=== PATIENT | male | born 1980 | race Caucasian/White ===

== ENCOUNTER 2017-01-10 11:47 | Inpatient (IN) | payer SELFPAY ==
[2017-01-10 12:41] LABS: Hematocrit 48 % (42-52); Hemoglobin 16.2 g/dl (14.0-18.0); Mean Corpuscular HGB Conc 34 g/dl (31-36); Mean Corpuscular Hemoglobin 31 pg (27-31); Mean Corpuscular Volume 91 fL (80-94); Mean Platelet Volume 7 um3 (7.4-10.4); Red Blood Count 5.24 10^6/ul (4.0-5.4); Red Cell Distribution Width 13 % (10.5-15); White Blood Count 9.9 10^3/ul (3.5-10.8)
[2017-01-10 12:45] LABS: Urine Bacteria Absent (Absent); Urine Bilirubin Negative (Negative); Urine Glucose Negative (Negative); Urine Nitrite Negative (Negative)
[2017-01-10 12:58] LABS: ALT 29 U/L (7-52); AST 24 U/L (13-39); Albumin 4.7 g/dL (3.2-5.2); Alkaline Phosphatase 52 U/L (34-104); Anion Gap 7 mmol/L (2-11); BUN/Creatinine Ratio 15.7 (8-20); Blood Urea Nitrogen 14 mg/dL (6-24); CO2 Carbon Dioxide 27 mmol/L (22-32); Calcium 9.4 mg/dL (8.6-10.3); Chloride 101 mmol/L (101-111); EGFR Non-African American 95.7 (>60); Glucose 88 mg/dL (70-100); Potassium 3.8 mmol/L (3.5-5.0); Sodium 135 mmol/L (133-145); Total Protein 7.7 g/dL (6.4-8.9)
[2017-01-10 13:00] LABS: Benzodiazepine Urine Screen None Detected (None Detect)
[2017-01-10 13:22] LABS: Acetaminophen < 15 mcg/mL; Alcohol < 10 mg/dL (<10); Salicylate < 2.50 mg/dL (<30)
[2017-01-10 13:33] LABS: TSH (Thyroid Stimulating Horm) 1.23 mcIU/mL (0.34-5.60)
[2017-01-10] MEDS ORDERED: Al Hydrox/Mg Hydrox/Simet LIQ* 30 ML UDC PO PRN (19:45)
--- NOTE | 2017-01-10 19:48 | ED ---
Elizabeth Rodriguez Matthew, scribed for Jose Rafael Orellana on 01/10/17 at 1924 . Progress - Progress Note Progress Note: The patient was a sign out from Dr. Ku. The patient had a mental health evaluation and will be admitted to [facility]. She is in stable condition. - Consult/PCP Time Called: 15:35 Course/Dx - Diagnoses Provider Diagnoses: Mood disorder The documentation as recorded by the kenyibeElizabeth Matthew accurately reflects the service I personally performed and the decisions made by Reyna rudd Emmanuel.
[2017-01-10] MEDS: Acetaminophen TAB* 325 MG PO PRN (20:20)
[2017-01-10] MEDS: busPIRone TAB* 10 MG PO SCH (22:00)
--- NOTE | 2017-01-11 07:50 | ED ---
Pablito Rodriguez Rebecca, scribed for Saw Ku MD on 01/10/17 at 1211 . Psychiatric Complaint - HPI Summary HPI Summary: Pt is a 36 y/o M who presents to ED c/o increased impulsive actions. States that for the past week he has been acting impulsively and is concerned that he will hurt himself or others. Sx aggravated by medication non-compliance, alleviated by nothing. Pt reports that he believed his OCD and Bipolar were under control, so he ceased his Abilify and Lucida. Denies any pain. PMHx OCD, Bipolar disorder, Depression. Does see a psychiatrist. - History Of Current Complaint Chief Complaint: EDMentalHealth Time Seen by Provider: 01/10/17 11:57 Hx Obtained From: Patient Onset/Duration: Gradual Onset, Lasting Weeks - 1 week, Still Present Timing: Constant Severity Initially: Moderate Severity Currently: Moderate Character: Depressed - "impulsive" Aggravating Factor(s): Medication Non-compliance Alleviating Factor(s): Nothing Associated Signs And Symptoms: Positive: Negative Related History: Positive For: Prior Psychiatric Issues - PCD, Bipolar, Depression - Allergies/Home Medications Allergies/Adverse Reactions: Allergies Allergy/AdvReac Type Severity Reaction Status Date / Time No Known Allergies Allergy Verified 01/10/17 11:56 Home Medications: Home Medications Lisinopril [Zestril 10 MG-] 10 mg PO DAILY 01/10/17 [History Confirmed 01/10/17] Prozac 120 mg PO DAILY 01/10/17 [History Confirmed 01/10/17] busPIRone TAB* [Buspar TAB *] 15 mg PO BID 01/10/17 [History Confirmed 01/10/17] clonazePAM TAB(*) [Klonopin TAB(*)] 0.5 mg BID 01/10/17 [History Confirmed 01/10] PMH/Surg Hx/FS Hx/Imm Hx Cardiovascular History: Reports: Hx Hypertension Psychiatric History: Reports: Hx Depression, Hx Bipolar Disorder, Other Psychiatric Issues/Disorders - Hx OCD Denies: Hx Eating Disorder, Hx of Violent Episodes Against Others Infectious Disease History: No Infectious Disease History: Denies: Traveled Outside the [place] in Last 30 Days - Family History Known Family History: Positive: Cardiac Disease, Other - OCD - Social History Alcohol Use: Rare Substance Use Type: Reports: None Smoking Status (MU): Former Smoker Review of Systems Negative: Arthralgia, Myalgia Positive: Other - "impulsive actions" All Other Systems Reviewed And Are Negative: Yes Physical Exam Triage Information Reviewed: Yes Vital Signs On Initial Exam: Initial Vitals Temp Pulse Resp BP Pulse Ox 99.1 F 84 16 146/89 98 01/10/17 11:56 01/10/17 11:56 01/10/17 11:56 01/10/17 11:56 01/10/17 11:56 Vital Signs Reviewed: Yes Appearance: Positive: Well-Appearing, No Pain Distress Skin: Positive: Warm, Skin Color Reflects Adequate Perfusion, Dry Head/Face: Positive: Normal Head/Face Inspection Eyes: Positive: EOMI, KAYLI ENT: Positive: Normal ENT inspection Neck: Positive: Supple, Nontender Respiratory/Lung Sounds: Positive: Clear to Auscultation, Breath Sounds Present Cardiovascular: Positive: RRR, Pulses are Symmetrical in both Upper and Lower Extremities Musculoskeletal: Positive: Normal, Strength/ROM Intact Neurological: Positive: Normal, Sensory/Motor Intact, Alert, Oriented to Person Place, Time Psychiatric: Positive: Normal, Affect/Mood Appropriate Diagnostics - Vital Signs Vital Signs Temp Pulse Resp BP Pulse Ox 01/10/17 11:56 99.1 F 84 16 146/89 98 - Laboratory Lab Results: Lab Results 01/10/17 01/10/17 01/10/17 Range/Units 12:29 12:29 12:29 WBC 9.9 (3.5-10.8) 10^3/ul RBC 5.24 (4.0-5.4) 10^6/ul Hgb 16.2 (14.0-18.0) g/dl Hct 48 (42-52) % MCV 91 (80-94) fL MCH 31 (27-31) pg MCHC 34 (31-36) g/dl RDW 13 (10.5-15) % Plt Count 308 (150-450) 10^3/ul MPV 7 L (7.4-10.4) um3 Neut % (Auto) 71.4 (38-83) % Lymph % (Auto) 20.7 L (25-47) % [place] % (Auto) 5.9 (1-9) % Eos % (Auto) 1.2 (0-6) % Baso % (Auto) 0.8 (0-2) % Absolute Neuts (auto) 7.1 (1.5-7.7) 10^3/ul Absolute Lymphs (auto) 2.0 (1.0-4.8) 10^3/ul Absolute Monos (auto) 0.6 (0-0.8) 10^3/ul Absolute Eos (auto) 0.1 (0-0.6) 10^3/ul Absolute Basos (auto) 0.1 (0-0.2) 10^3/ul Absolute Nucleated RBC 0.01 10^3/ul Nucleated RBC % 0.1 Sodium 135 (133-145) mmol/L Potassium 3.8 (3.5-5.0) mmol/L Chloride 101 (101-111) mmol/L Carbon Dioxide 27 (22-32) mmol/L Anion Gap 7 (2-11) mmol/L BUN 14 (6-24) mg/dL Creatinine 0.89 (0.67-1.17) mg/dL Est GFR ( Amer) 123.0 (>60) Est GFR (Non-Af Amer) 95.7 (>60) BUN/Creatinine Ratio 15.7 (8-20) Glucose 88 (70-100) mg/dL Calcium 9.4 (8.6-10.3) mg/dL Total Bilirubin 2.30 H (0.2-1.0) mg/dL AST 24 (13-39) U/L ALT 29 (7-52) U/L Alkaline Phosphatase 52 (34-104) U/L Total Protein 7.7 (6.4-8.9) g/dL Albumin 4.7 (3.2-5.2) g/dL Globulin 3.0 (2-4) g/dL Albumin/Globulin Ratio 1.6 (1-3) TSH 1.23 (0.34-5.60) mcIU/mL Urine Color Yellow Urine Appearance Cloudy Urine pH 7.0 (5-9) Ur Specific [place] 1.012 (1.010-1.030) Urine Protein Negative (Negative) Urine Ketones Negative (Negative) Urine Blood Negative (Negative) Urine Nitrate Negative (Negative) Urine Bilirubin Negative (Negative) Urine Urobilinogen Negative (Negative) Ur Leukocyte Esterase Trace H (Negative) Urine WBC (Auto) Absent (Absent) Urine RBC (Auto) Absent (Absent) Ur Squamous Epith Cells Present H (Absent) Urine Bacteria Absent (Absent) Urine Glucose Negative (Negative) Salicylates < 2.50 (<30) mg/dL Urine Opiates Screen (None Detect) Acetaminophen < 15 mcg/mL Ur Barbiturates Screen (None Detect) Ur Phencyclidine Scrn (None Detect) Ur Amphetamines Screen (None Detect) U Benzodiazepines Scrn (None Detect) Urine Cocaine Screen (None Detect) U Cannabinoids Screen (None Detect) Serum Alcohol < 10 (<10) mg/dL 01/10/17 Range/Units 12:29 WBC (3.5-10.8) 10^3/ul RBC (4.0-5.4) 10^6/ul Hgb (14.0-18.0) g/dl Hct (42-52) % MCV (80-94) fL MCH (27-31) pg MCHC (31-36) g/dl RDW (10.5-15) % Plt Count (150-450) 10^3/ul MPV (7.4-10.4) um3 Neut % (Auto) (38-83) % Lymph % (Auto) (25-47) % [place] % (Auto) (1-9) % Eos % (Auto) (0-6) % Baso % (Auto) (0-2) % Absolute Neuts (auto) (1.5-7.7) 10^3/ul Absolute Lymphs (auto) (1.0-4.8) 10^3/ul Absolute Monos (auto) (0-0.8) 10^3/ul Absolute Eos (auto) (0-0.6) 10^3/ul Absolute Basos (auto) (0-0.2) 10^3/ul Absolute Nucleated RBC 10^3/ul Nucleated RBC % Sodium (133-145) mmol/L Potassium (3.5-5.0) mmol/L Chloride (101-111) mmol/L Carbon Dioxide (22-32) mmol/L Anion Gap (2-11) mmol/L BUN (6-24) mg/dL Creatinine (0.67-1.17) mg/dL Est GFR ( Amer) (>60) Est GFR (Non-Af Amer) (>60) BUN/Creatinine Ratio (8-20) Glucose (70-100) mg/dL Calcium (8.6-10.3) mg/dL Total Bilirubin (0.2-1.0) mg/dL AST (13-39) U/L ALT (7-52) U/L Alkaline Phosphatase (34-104) U/L Total Protein (6.4-8.9) g/dL Albumin (3.2-5.2) g/dL Globulin (2-4) g/dL Albumin/Globulin Ratio (1-3) TSH (0.34-5.60) mcIU/mL Urine Color Urine Appearance Urine pH (5-9) Ur Specific [place] (1.010-1.030) Urine Protein (Negative) Urine Ketones (Negative) Urine Blood (Negative) Urine Nitrate (Negative) Urine Bilirubin (Negative) Urine Urobilinogen (Negative) Ur Leukocyte Esterase (Negative) Urine WBC (Auto) (Absent) Urine RBC (Auto) (Absent) Ur Squamous Epith Cells (Absent) Urine Bacteria (Absent) Urine Glucose (Negative) Salicylates (<30) mg/dL Urine Opiates Screen None detected (None Detect) Acetaminophen mcg/mL Ur Barbiturates Screen None detected (None Detect) Ur Phencyclidine Scrn None detected (None Detect) Ur Amphetamines Screen None detected (None Detect) U Benzodiazepines Scrn None detected (None Detect) Urine Cocaine Screen None detected (None Detect) U Cannabinoids Screen None detected (None Detect) Serum Alcohol (<10) mg/dL Result Diagrams: 01/10/17 12:29 01/10/17 12:29 Lab Statement: Any lab studies that have been ordered have been reviewed, and results considered in the medical decision making process. Course/Dx - Course Course Of Treatment: Pt is a 36 y/o M who presents to ED c/o increased impulsive actions. States that for the past week he has been acting impulsively and is concerned that he will hurt himself or others. Sx aggravated by medication non-compliance, alleviated by nothing. Pt reports that he believed his OCD and Bipolar were under control, so he ceased his Abilify and Lucida. Denies any pain. PMHx OCD, Bipolar disorder, Depression. Does see a psychiatrist. All blood work WNL. He is medically cleared. He is awaiting for a MHE. Patient is hemodynamically stable and A+O x 3. He still awaiting for MHE. He will be signed out to Dr. Orellana next ER attending Assessment/Plan: Pt is medically cleared for MHE at 1359. - Differential Dx/Clinical Impression Differential Diagnosis/HQI/PQRI: Positive: Depression, Suicidal Ideation, Suicidal Gesture Provider Diagnosis: Mood disorder Discharge - Discharge Plan Condition: Stable Disposition: ADMITTED TO [facility] The documentation as recorded by the Pablito talbot Rebecca accurately reflects the service I personally performed and the decisions made by Kings rudd Walter, MD.
[2017-01-11] MEDS: FLUoxetine CAP* 20 MG PO SCH (10:11)
[2017-01-11] MEDS: busPIRone TAB* 10 MG PO SCH ×2 (10:11→20:04)
[2017-01-11] MEDS: Vitamin THERAPEUTIC TAB PO SCH (10:11)
[2017-01-11] MEDS: Lisinopril TAB* 10 MG PO SCH (13:31)
--- NOTE | 2017-01-11 18:33 | HP ---
HISTORY AND PHYSICAL: DATE OF ADMISSION: 01/10/17 IDENTIFYING DATA: Willie is a 36-year-old , currently unemployed male and this is his second psychiatric hospitalization on [facility]. He was last hospitalized here on 08/07/15. CHIEF COMPLAINT: "I am no good for my family, hence should kill myself." HISTORY OF PRESENT ILLNESS: Willie with a lifelong history of mental illness and minimum treatment for all along was brought into the emergency department by his father after he went to stay in a hotel room with an intention to commit suicide so that he does not have to bother his family or be a burden on them any way. This is probably his second lifetime suicidal intent with definitive plan. This time, he wanted to overdose on his pills to commit suicide. Please review Dr. Redmond' initial H and P done on 08/07/15 for details. During today' s evaluation, Willie reports that he has been tormented with intrusive thoughts of hurting people, especially people near and dear to him. Most disturbing thought that bothers him the most is the intrusive thoughts of sexually hurting his 16-year-old daughter and he has had this thought since she was a couple of years old. He also has this intrusive thought of mutilating others whoever he comes in contact with and to avoid that, he stays to self, isolates himself in a room or somewhere where he will not have any contact with anybody. He also reports of having severe paranoia towards others as if they are always observing him and trying to kill him and to avoid being killed, he wants to kill them preemptively. On a daily basis, he struggles through with those intrusive thoughts. Ever since he was 14-year-old, he started hearing voices, especially a female voice telling him to do things. He heard the voices and followed the command by the female voice he heard at age 14 by getting out of the school as the voicing was telling him "get out of the school." He kept hearing those voices ever since and since his grandfather , he has been hearing his grandfather's voice in a more calming and soothing voice telling him not to worry about anything and be happy, that kind of stuff, but he keeps hearing the voices. He also complains of seeing things at times which are not there; however, those visual hallucinations are vague, but auditory hallucinations are persistent for all these years except for those times that he was started on Seroquel by Dr. Redmond when he was here in 2014. After that, he was taken off that medicine, tried on different other medications which did not help much. Today, he continues to hear the voices and is disturbed by that. His life story has been a very interesting and significant one, which needs to be looked at by the treatment team. Part of it is mentioned in Dr. Redmond' evaluation. Especially his previous relationship with his and current relationship which is kind of randa because of his suspicion that he has had about his and her infidelity which in my opinion probably is rooted more into his paranoia and delusions. In the recent past, he has had some germaphobia leading up to cleanliness. That has not affected his function and lifestyle as much, but it is still distressing to him. Today, he denies any other problems including financial problem as his works as a nurse, although he is [id number] dad. To emphasize one point that he continues to be suicidal and homicidal towards others. PAST PSYCHIATRIC HISTORY: As mentioned earlier, he had 1 hospitalization in 2015. Had some followup with [facility] and was tried on multiple different medications including Prozac, Klonopin, BuSpar, Seroquel, etc. According to Willie, Seroquel helped him the most. PAST MEDICAL HISTORY: Remarkable for chronic hypertension which is pretty much in control with lisinopril. Otherwise, he is a healthy young man who does not appear to be in any distress today. ALLERGIES: No known drug allergies. PRIMARY CARE PROVIDER: Dr. Richards. FAMILY HISTORY: Significant for his paternal grandfather who suffered from OCD , also did his aunt. There is history of depression on his mother's side. One of his paternal uncles also had panic disorder. Daughter also has a history of depression. SOCIAL AND PERSONAL HISTORY: He was born and raised in [place]. He has 2 brothers, 1 younger and older. He has a supportive family and a supportive . He has 4 children, all of whom are healthy and supportive of him. He denies any legal problems. Initially, quit school at age 14 because of command auditory hallucinations. Then worked for a while, went back to school, got his GED done and later went to do some college courses. He was employed most of his life except for occasions that he went back to school or wanted to transfer from here to [place]. Had good paying jobs. 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 PHYSICAL EXAMINATION GENERAL: Willie is a healthy-looking male who is neatly dressed and groomed. VITAL SIGNS: Taken this morning show a blood pressure of 180/69, pulse 72, respirations 16, temperature 98.9 degrees Fahrenheit, O2 sat 100%. HEENT: Head: Atraumatic, normocephalic. Eyes: PERRLA. EOMI. No icterus. Mouth: Oral mucosa moist. Good dentures. No indication of any inflammation. NECK: Supple. Midline trachea. No lymphadenopathy. Carotid auscultation is within normal limits without any murmurs. LUNGS: Air entry on both sides good. No wheezes or crackles. HEART: Regular rate and rhythm. S1 and S2 only. No murmurs. ABDOMEN: Soft, nontender. No organomegaly palpated. Bowel sounds audible in all quadrants. EXTREMITIES: Pulses positive in all 4 extremities. Range of movements within normal limits. NEUROLOGIC: Cranial nerves II through XII grossly intact. No deficits. He is alert and oriented to time, place, and person. Overall, he is a healthy- appearing young male. LABORATORY DATA: Included CBC with differential, serum chemistry, urinalysis, urine drug screen, and toxicology screen. WBC is 9.9, hemoglobin 16.2, hematocrit 48, platelets 308. Rest of the parameters are within normal limits. Chemistry shows a sodium of 135, potassium 3.8, chloride 101, carbon dioxide 27, creatinine 0.89, BUN 14, GFR 95.7. Total bilirubin is 2.30 which is higher than normal. Liver function tests within normal limits. Urinalysis unremarkable. Urine drug screen negative for all street drugs. Serum salicylate level is less than 2.5. Acetaminophen less than 25. Serum alcohol less than 10. MENTAL STATUS EXAMINATION: Examined in his room while he was sitting in his bed and later laid down, staring away from the examiner, mostly covered his eyes with his arm. He is alert and oriented to time, place, and person. Speech is slow and low in volume; however, is goal directed. Describes his mood as down and anxious. Observed affect appears to be constricted. Thought process appears to be logical and goal directed. Thought Content: Has some paranoid delusion and some obsessions about hurting others, both physically and sexually. Reporting of command auditory hallucinations of both man and woman voices which is intrusive and he tries to get rid of them by hitting his head on the wall sometimes or punching himself. Continues to have both suicidal and homicidal thoughts. Intelligence appears to be average as evidenced by his educational background, vocabulary, and fund of knowledge. Memory functions are intact in all spheres. Insight and judgment adequate. SUMMARY: This 36-year-old male with history of mental illness, especially psychosis since age 14 was admitted twice on behavioral health unit here and appears to have done fairly well on Seroquel in the past. In the recent past, his symptoms reoccurred and he is currently both suicidal and homicidal. DIAGNOSES: Meherrin I: Schizophrenia, paranoid type, continuous. Rule out obsessive- compulsive disorder. Rule out major depressive disorder with psychosis. PHYSICAL HEALTH DIAGNOSIS: Hypertension. TREATMENT RECOMMENDATIONS: Willie will remain hospitalized on behavioral health unit for his safety, further evaluation and assessments and diagnostic clarification. For now, his code status will remain full. Supportive milieu, individual, and group therapy will be initiated. Different treatment options with risks, benefits, and alternatives were discussed with Willie. He is willing to try Seroquel again. Hence, I have prescribed Seroquel 50 mg at bedtime starting tonight. I have also prescribed Depakote 250 mg twice a day, which he agreed to take. Further pharmacological management will be deferred to his assigned psychiatrist on the unit. His antihypertensive will continue as it was on an outpatient basis. [id number]/[facility] #: [id number] [facility]
--- NOTE | 2017-01-11 20:02 | ADMNOTE ---
Identification - Identify Employment Status: Unemployed History - Objective HPI: 36 y/o male known to this unit from his last admission in 2014 almost underthe same circumstances presents to [facility] complaining of suicidal and homicidal thoughts with command auditory hallucinations and paranoid delusions off an on since age 14. Exam Appearance: Healthy Appearing Hygiene: Normal Grooming: Well Kept Psychomotor Activities: Normal Exhibits Abnormal Movement: No Attitude and Relatedness: Appropriate Eye Contact: Poor - Speech Quality: Unpressured Latencies: Long Quantity: Appropriate Patient's Decription of Mood: "Sad" Observed Affect: Constricted Affect Consistent with: Dysphoria Patient's Thought Process: Coherent, Goal Directed Thought Content: Yes Passive Wish, Yes Suicidal Planning Experiencing Hallucinations: Yes Type of Hallucinations: Visual: Yes, Auditory: Yes, Command: Yes Level of Consciousness: Alert Orientation: Yes Intact, Yes Orientated to Time, Yes Orientated to Place, Yes Orientated to Person Impulse Control: Tenuous - two prior suicide attempts Insight and Judgement: Good Impression - Impression Clinical Impression: 36 y/o male with paranoia, command auditory hallucination, suicidal and homicidal ideations and intrussive thoughts of sexually assaulting his 12 y/o daugher was BIB his father for help. Merits Inpatient Hospitalization: Yes - [place] [facility] Mental Illness: Schizophrenia, PT vs SChizoaffective d/o - [place] [facility] Medical Illness: HTN Plan - Treatment Plan Continued Medication Management: Start Medication Medications: Current Medications Acetaminophen (Tylenol Tab*) 650 mg PO Q4H PRN PRN Reason: PAIN or TEMP > 101 F Last Admin: 01/10/17 20:20 Dose: 650 mg Al Hydrox/Mg Hydrox/Simethicone (Maalox Plus*) 30 ml PO Q4H PRN PRN Reason: INDIGESTION Buspirone HCl (Buspar Tab*) 20 mg PO BID [facility] Last Admin: 01/11/17 10:11 Dose: 20 mg Divalproex Sodium (Depakote Dr Tab(*)) 250 mg PO BID [facility] Fluoxetine HCl (Prozac Cap*) 60 mg PO DAILY [facility] Last Admin: 01/11/17 10:11 Dose: 60 mg Lisinopril (Prinivil Tab*) 10 mg PO DAILY [facility] Last Admin: 01/11/17 13:31 Dose: 10 mg Multivitamins (Theragran Tab*) 1 tab PO DAILY [facility] Last Admin: 01/11/17 10:11 Dose: 1 tab Quetiapine Fumarate (Seroquel Tab*) 50 mg PO BEDTIME [facility]IVIA - Discharge Plan Discharge Plan: Outpatient Follow Up Outpatient Program: [facility]
[2017-01-11] MEDS: QUEtiapine TAB* 25 MG PO SCH (20:03)
[2017-01-11] MEDS: Divalproex DR TAB(*) 250 MG PO SCH (20:03)
[2017-01-12] MEDS: FLUoxetine CAP* 20 MG PO SCH (08:41)
[2017-01-12] MEDS: busPIRone TAB* 10 MG PO SCH ×2 (08:41→20:19)
[2017-01-12] MEDS: Divalproex DR TAB(*) 250 MG PO SCH ×2 (08:42→20:19)
[2017-01-12] MEDS: Lisinopril TAB* 10 MG PO SCH (08:42)
[2017-01-12] MEDS: Vitamin THERAPEUTIC TAB PO SCH (08:42)
--- NOTE | 2017-01-12 13:03 | PN ---
Subjective - Subjective Service Type: 89654 Hosp care 15 min low complexity Subjective: Carol reports that he will rescind the 72 hour notice that he gave us earlier today. His believes he needs continued care for the thoughts of harming others that he has been bothered by. At one point in the interview, when I was asking him about family psychiatric history in clarification of what Dr Rider had reported, I had an involuntary belch, he asked if I had chortled, and his asked if he could work with another doctor as she felt that we were not establishing a good rapport. He and his report that he has worked with many different psychotherapists, and none have established a good enough rapport for him to continue to work with them. He asked that we meet more later. He and his report that he should be receiving 120 mg fluoxetine daily. Objective - Appearance Appearance: Healthy Appearing Dysmorphic Features: No Hygiene: Normal Grooming: Well Kept - Behavior Psychomotor Activities: Normal Exhibits Abnormal Movement: No - Attitude and Relatedness Attitude and Relatedness: Cooperative Eye Contact: Fair - Speech Quality: Unpressured Latencies: Normal Quantity: Appropriate - Mood Patient's Decription of Mood: "A little frustrated" - Affect Observed Affect: Depressed Affect Consistent with: Dysphoria - Thought Process Patient's Thought Process: Coherent, Goal Directed Thought Content: No Passive Wish, No Suicidal Planning, No Homicidal Ideation, No Paranoid Ideation - Sensorium Experiencing Hallucinations: No, Sensorium is Clear Type of Hallucinations: Visual: No, Auditory: No, Command: No - Level of Consciousness Level of Consciousness: Alert Orientation: Yes Intact, Yes Orientated to Time, Yes Orientated to Place, Yes Orientated to Person - Impulse Control Impulse Control: Intact - Insight and Judgement Insight and Judgement: Impaired - Group Participation Particating in Group Activities: No Group Participation Comments: in reviewing treatment plan, he and his indicated that they did not feel he benefits from groups - Medication Management Medication Management Adherence: Yes Assessment - Assessment Merits Inpatient Hospitalization: For Immediate Safety, For Stabilization Inpatient DSM-IV Dx: Schizophrenia, paranoid type. OCD Clinical Impression: Carol has been admitted for concerns raised about thoughts to harm family members. He denies today the AH he had reported upon admission. He has put in a 72 hour notice requesting discharge, but has agreed to rescind it. He and his asked to work with another doctor because he misinterpreted my belch as a chortle. His also stated that she felt I was 'overbearing.' Later his reported she felt her could work with me. He remarkably reports no troubles now from the multiple symptoms he reported on admission, including troubling urges to do harm to his child. His indicated that she feels he needs a safe place at this time and should not be discharged. Plan - Plan Treatment Plan: Name: CAROL STONE Birthdate: 1980 [id number] Increase Prozac dose to 120 mg daily. Monitor MS and safety. Gather collateral. Medications: Current Medications Acetaminophen (Tylenol Tab*) 650 mg PO Q4H PRN PRN Reason: PAIN or TEMP > 101 F Last Admin: 01/10/17 20:20 Dose: 650 mg Al Hydrox/Mg Hydrox/Simethicone (Maalox Plus*) 30 ml PO Q4H PRN PRN Reason: INDIGESTION Buspirone HCl (Buspar Tab*) 20 mg PO BID [facility] Last Admin: 01/12/17 08:41 Dose: 20 mg Divalproex Sodium (Depakote Dr Tab(*)) 250 mg PO BID [facility] Last Admin: 01/12/17 08:42 Dose: 250 mg Fluoxetine HCl (Prozac Cap*) 60 mg PO DAILY [facility] Last Admin: 01/12/17 08:41 Dose: 60 mg Lisinopril (Prinivil Tab*) 10 mg PO DAILY [facility] Last Admin: 01/12/17 08:42 Dose: 10 mg Multivitamins (Theragran Tab*) 1 tab PO DAILY [facility] Last Admin: 01/12/17 08:42 Dose: 1 tab Quetiapine Fumarate (Seroquel Tab*) 50 mg PO BEDTIME [facility] Last Admin: 01/11/17 20:03 Dose: 50 mg - Discharge Plan Discharge Plan: Outpatient Follow Up Outpatient Program: [facility]
[2017-01-12] MEDS ORDERED: Nicotine Inhaler* 10 MG AMP INH PRN (13:05)
[2017-01-12] MEDS ORDERED: FLUoxetine CAP* 20 MG PO ONE (13:07)
[2017-01-12] MEDS ORDERED: Mouth Piece, Nicotine* 1 EACH CARTRIDGE INH ONE (13:10)
[2017-01-12] MEDS: QUEtiapine TAB* 25 MG PO SCH (20:19)
[2017-01-13] MEDS: FLUoxetine CAP* 20 MG PO SCH (08:02)
[2017-01-13] MEDS: Lisinopril TAB* 10 MG PO SCH (08:03)
[2017-01-13] MEDS: Divalproex DR TAB(*) 250 MG PO SCH (08:03)
[2017-01-13] MEDS: Vitamin THERAPEUTIC TAB PO SCH (08:03)
[2017-01-13] MEDS: busPIRone TAB* 10 MG PO SCH ×2 (08:03→20:06)
--- NOTE | 2017-01-13 13:55 | PN ---
Subjective - Subjective Service Type: 98307 Hosp care 15 min low complexity Subjective: Carol reports continued high levels of distress from PI, HI, SI. Denies AH/VH but does have intrusive images of him doing harmful things to others, such as grabbing someone by the upper and lower jaw and bringing his knee up into the back of their neck. He has continued concern that he might act on these or other thoughts and images of harming others. He reports that in 2003 he did well taking Zyprexa. He would like to stop the Depakote. He has had disturbing images of everyone on the unit vomiting, so did not leave his room much yesterday. He reported today a history of elaborate redundant suicidal thoughts, e.g. jumping from a bridge with a gun and shooting himself in the head as he falls after taking an overdose. Objective - Appearance Appearance: Healthy Appearing Dysmorphic Features: No Hygiene: Normal Grooming: Well Kept - Behavior Psychomotor Activities: Normal Exhibits Abnormal Movement: No - Attitude and Relatedness Attitude and Relatedness: Withdrawn Eye Contact: Poor - Speech Quality: Unpressured Latencies: Normal Quantity: Appropriate - Mood Patient's Decription of Mood: "My stomach was a little off. I was a little panicky, paranoid." - Affect Observed Affect: Depressed Affect Consistent with: Dysphoria - Thought Process Patient's Thought Process: Coherent, Goal Directed Thought Content: Yes Passive Wish, Yes Suicidal Planning, Yes Homicidal Ideation, Yes Paranoid Ideation - Sensorium Type of Hallucinations: Visual: No - but continued vivid imagery recognized as such, Auditory: No, Command: No - Level of Consciousness Level of Consciousness: Alert Orientation: Yes Intact, Yes Orientated to Time, Yes Orientated to Place, Yes Orientated to Person - Impulse Control Impulse Control: Intact - Insight and Judgement Insight and Judgement: Poor - Group Participation Particating in Group Activities: No - Medication Management Medication Management Adherence: Yes Assessment - Assessment Merits Inpatient Hospitalization: For Immediate Safety, For Stabilization, For Ongoing Evaluation, For Discharge Planning, Pending Safe DC Plan Inpatient DSM-IV Dx: Schizophrenia, paranoid type. OCD Clinical Impression: Carol has been admitted for concerns raised about thoughts to harm family members. He denies today the AH he had reported upon admission. He has put in a 72 hour notice requesting discharge, but has agreed to rescind it. He and his asked to work with another doctor because he misinterpreted my belch as a chortle. His also stated that she felt I was 'overbearing.' Later his reported she felt her could work with me. He remarkably reports no troubles now from the multiple symptoms he reported on admission, including troubling urges to do harm to his child. His indicated that she feels he needs a safe place at this time and should not be discharged. [id number] Carol agrees today to a medication change that may be more effective against target symptoms of obsessional thoughts of harming self and others. Plan - Plan Treatment Plan: Name: CAROL STONE Birthdate: 1980 [id number] Continue Prozac dose at 120 mg daily. D/C Depakote. Replace 50 mg Seroquel with 10 mg Zyprexa. Reviewed potential benefits and side effects. Carol chooses to try Zyprexa for likely benefits against hallucinations, accepting increased risks of dyslipidemia, onset of diabetes, and weight gain. Monitor MS and safety. Gather collateral. Continued Medication Management: Different Medication Medications: Current Medications Acetaminophen (Tylenol Tab*) 650 mg PO Q4H PRN PRN Reason: PAIN or TEMP > 101 F Last Admin: 01/10/17 20:20 Dose: 650 mg Al Hydrox/Mg Hydrox/Simethicone (Maalox Plus*) 30 ml PO Q4H PRN PRN Reason: INDIGESTION Buspirone HCl (Buspar Tab*) 20 mg PO BID [facility] Last Admin: 01/13/17 08:03 Dose: 20 mg Divalproex Sodium (Depakote Dr Tab(*)) 250 mg PO BID [facility] Last Admin: 01/13/17 08:03 Dose: 250 mg Fluoxetine HCl (Prozac Cap*) 120 mg PO DAILY [facility] Last Admin: 01/13/17 08:02 Dose: 120 mg Lisinopril (Prinivil Tab*) 10 mg PO DAILY [facility] Last Admin: 01/13/17 08:03 Dose: 10 mg Multivitamins (Theragran Tab*) 1 tab PO DAILY [facility] Last Admin: 01/13/17 08:03 Dose: 1 tab Nicotine (Nicotine Inhaler*) 10 mg INH Q2H PRN PRN Reason: CRAVING Quetiapine Fumarate (Seroquel Tab*) 50 mg PO BEDTIME [facility] Last Admin: 01/12/17 20:19 Dose: 50 mg - Discharge Plan Discharge Plan: Outpatient Follow Up Outpatient Program: [facility]
[2017-01-13] MEDS: OLANzapine TAB*ODT* 10 MG TAB PO SCH (20:06)
[2017-01-14] MEDS: Vitamin THERAPEUTIC TAB PO SCH (08:12)
[2017-01-14] MEDS: busPIRone TAB* 10 MG PO SCH ×2 (08:13→20:52)
[2017-01-14] MEDS: Lisinopril TAB* 10 MG PO SCH (08:13)
[2017-01-14] MEDS: FLUoxetine CAP* 20 MG PO SCH (08:13)
[2017-01-14] MEDS: Acetaminophen TAB* 325 MG PO PRN (09:31)
--- NOTE | 2017-01-14 15:31 | PN ---
Subjective - Subjective Service Type: 68401 Hosp care 15 min low complexity Subjective: Carol reports today 'calm' mood. He denies any psychotic symptoms or dangerous intent or plan. His only physical complaint is of headache. He reports that he feels his OCD symptoms are under control now. Objective - Appearance Appearance: Healthy Appearing Dysmorphic Features: No Hygiene: Normal Grooming: Well Kept - Behavior Psychomotor Activities: Normal Exhibits Abnormal Movement: No - Attitude and Relatedness Attitude and Relatedness: Cooperative Eye Contact: Good - Speech Quality: Unpressured Latencies: Normal Quantity: Appropriate - Mood Patient's Decription of Mood: "Calm" - Affect Observed Affect: Constricted Affect Consistent with: Euthymia - Thought Process Patient's Thought Process: Coherent, Goal Directed Thought Content: No Passive Wish, No Suicidal Planning, No Homicidal Ideation, No Paranoid Ideation - Sensorium Experiencing Hallucinations: No, Sensorium is Clear Type of Hallucinations: Visual: No, Auditory: No, Command: No - Level of Consciousness Level of Consciousness: Alert Orientation: Yes Intact, Yes Orientated to Time, Yes Orientated to Place, Yes Orientated to Person - Impulse Control Impulse Control: Intact - Insight and Judgement Insight and Judgement: Poor - Group Participation Particating in Group Activities: No - Medication Management Medication Management Adherence: Yes Assessment - Assessment Merits Inpatient Hospitalization: For Immediate Safety, For Stabilization, To Initiate Treatment, For Ongoing Evaluation, For Discharge Planning, Pending Safe DC Plan Inpatient DSM-IV Dx: Schizophrenia, paranoid type. OCD Clinical Impression: Carol has been admitted for concerns raised about thoughts to harm family members. He denies today the AH he had reported upon admission. He has put in a 72 hour notice requesting discharge, but has agreed to rescind it. He and his asked to work with another doctor because he misinterpreted my belch as a chortle. His also stated that she felt I was 'overbearing.' Later his reported she felt her could work with me. He remarkably reports no troubles now from the multiple symptoms he reported on admission, including troubling urges to do harm to his child. His indicated that she feels he needs a safe place at this time and should not be discharged. 314.17 Carol agrees today to a medication change that may be more effective against target symptoms of obsessional thoughts of harming self and others. 3.15.17 Carol now gives an all is well report, denying any active symptoms including report of milder chronic OCD symptoms. On admission, concern had been raised regarding SI and obsessional thoughts of harming others. There is a high likelihood that his current report is masking active symptoms, in congruence with his submission of a 72 hour notice on his third day here. Plan - Plan Treatment Plan: Name: CAROL STONE Birthdate: 1980 [id number] Continue Prozac dose at 120 mg daily and Zyprexa just added at 10 mg nightly. Monitor MS and safety. Gather collateral. Consider psychological testing. Continued Medication Management: Different Medication Medications: Current Medications Acetaminophen (Tylenol Tab*) 650 mg PO Q4H PRN PRN Reason: PAIN or TEMP > 101 F Last Admin: 01/14/17 09:31 Dose: 650 mg Al Hydrox/Mg Hydrox/Simethicone (Maalox Plus*) 30 ml PO Q4H PRN PRN Reason: INDIGESTION Buspirone HCl (Buspar Tab*) 20 mg PO BID [facility] Last Admin: 01/14/17 08:13 Dose: 20 mg Fluoxetine HCl (Prozac Cap*) 120 mg PO DAILY [facility] Last Admin: 01/14/17 08:13 Dose: 120 mg Lisinopril (Prinivil Tab*) 10 mg PO DAILY [facility] Last Admin: 01/14/17 08:13 Dose: 10 mg Multivitamins (Theragran Tab*) 1 tab PO DAILY [facility] Last Admin: 01/14/17 08:12 Dose: 1 tab Nicotine (Nicotine Inhaler*) 10 mg INH Q2H PRN PRN Reason: CRAVING Olanzapine (Zyprexa *Odt*) 10 mg PO BEDTIME [facility] Last Admin: 01/13/17 20:06 Dose: 10 mg - Discharge Plan Discharge Plan: Outpatient Follow Up Outpatient Program: [facility]
[2017-01-14] MEDS: OLANzapine TAB*ODT* 10 MG TAB PO SCH (20:52)
[2017-01-15] MEDS: Vitamin THERAPEUTIC TAB PO SCH (08:26)
[2017-01-15] MEDS: busPIRone TAB* 10 MG PO SCH ×2 (08:26→20:34)
[2017-01-15] MEDS: Lisinopril TAB* 10 MG PO SCH (08:27)
[2017-01-15] MEDS: FLUoxetine CAP* 20 MG PO SCH (08:27)
--- NOTE | 2017-01-15 15:30 | PN ---
Subjective - Subjective Service Type: 02125 Hosp care 15 min low complexity Subjective: Carol reports feeling relatively better - lower distress, anxiety and emotional pain, but still does not feel well. Notes "a little" ongoing suicidal ideation and intrusive thoughts of harming others. Says he is a little more able to engage with others, and go to groups here. He denies side effects with medication - he asked to restart Depakote saying he felt it controlled his tremor nicely. Objective - Appearance Appearance: Well Developed/Nourished Hygiene: Normal Grooming: Well Kept - Behavior Psychomotor Activities: Normal - Attitude and Relatedness Attitude and Relatedness: Cooperative Eye Contact: Good - Speech Quality: Unpressured Latencies: Normal Quantity: Appropriate - Mood Patient's Decription of Mood: "Anxious" - Affect Observed Affect: Tense Affect Consistent with: Dysphoria - Thought Process Patient's Thought Process: Coherent, Impoverished Thought Content: No Passive Wish - notes intrusive suicidal thoughts, No Suicidal Planning, No Homicidal Ideation - notes intrusive violent thoughts, no planning, No Paranoid Ideation - Sensorium Experiencing Hallucinations: No, Sensorium is Clear - Impulse Control Impulse Control: Intact - Insight and Judgement Insight and Judgement: Fair Assessment - Assessment Merits Inpatient Hospitalization: For Immediate Safety, For Stabilization, To Initiate Treatment, For Ongoing Evaluation, Consolidate Improvements Inpatient DSM-IV Dx: OCD. Depressive disorder. Psychotic disorder Clinical Impression: 36 y/o male with history of suicidal behavior, psychiatric hospitalization, OCD , depression, psychosis, outpatient treatment. He was admitted after coming to the ED by car, with complaint of perceptual disturbances, distress, suicidal ideation, depression and anxiety, and an increase in intrusive thoughts of doing harm to loved ones (specifically his daughter). Stabilizing here. Reporting relatively reduced distress, levels and reduction of suicidal and violent thoughts. Is safe on checks, adherent with routines.' Medication management is with Zyprexa and Prozac. He received Depakote for several days, and reasonably asks to restart it. Based on ongoing symptoms, and apparent impairment off baseline requires ongoing hospital care. Plan - Plan Treatment Plan: Name: CAROL STONE Birthdate: 1980 [id number] Continued Medication Management: Different Medication Medications: Current Medications Acetaminophen (Tylenol Tab*) 650 mg PO Q4H PRN PRN Reason: PAIN or TEMP > 101 F Last Admin: 01/14/17 09:31 Dose: 650 mg Al Hydrox/Mg Hydrox/Simethicone (Maalox Plus*) 30 ml PO Q4H PRN PRN Reason: INDIGESTION Buspirone HCl (Buspar Tab*) 20 mg PO BID [facility] Last Admin: 01/15/17 08:26 Dose: 20 mg Fluoxetine HCl (Prozac Cap*) 120 mg PO DAILY [facility] Last Admin: 01/15/17 08:27 Dose: 120 mg Lisinopril (Prinivil Tab*) 10 mg PO DAILY [facility] Last Admin: 01/15/17 08:27 Dose: 10 mg Multivitamins (Theragran Tab*) 1 tab PO DAILY [facility] Last Admin: 01/15/17 08:26 Dose: 1 tab Nicotine (Nicotine Inhaler*) 10 mg INH Q2H PRN PRN Reason: CRAVING Olanzapine (Zyprexa *Odt*) 10 mg PO BEDTIME [facility] Last Admin: 01/14/17 20:52 Dose: 10 mg
[2017-01-15] MEDS: OLANzapine TAB*ODT* 10 MG TAB PO SCH (20:34)
[2017-01-15] MEDS: Divalproex DR TAB(*) 250 MG PO SCH (20:34)
[2017-01-16] MEDS: FLUoxetine CAP* 20 MG PO SCH (08:32)
[2017-01-16] MEDS: Lisinopril TAB* 10 MG PO SCH (08:34)
[2017-01-16] MEDS: Divalproex DR TAB(*) 250 MG PO SCH ×2 (08:34→19:58)
[2017-01-16] MEDS: busPIRone TAB* 10 MG PO SCH ×2 (08:34→19:58)
[2017-01-16] MEDS: Vitamin THERAPEUTIC TAB PO SCH (08:34)
--- NOTE | 2017-01-16 10:53 | PN ---
Subjective - Subjective Service Type: 57209 Hosp care 15 min low complexity Subjective: Carol reports a sense of further progress. Said Depakote seems to make him less shaky, he likes it. He denied side effects. He affirms he feels quite safe in terms of his expected behaviors. Notes very low level of "thoughts" of harm to others which he says is within the spectrum of other usual intrusive ideas (like worry about entering another patient's room) but that are so much milder, not bothersome and not experienced as a major distraction. He is content with his improvements. Objective - Appearance Appearance: Healthy Appearing Hygiene: Normal Grooming: Well Kept - Behavior Psychomotor Activities: Normal - Attitude and Relatedness Attitude and Relatedness: Cooperative Eye Contact: Good - Speech Quality: Unpressured Latencies: Normal Quantity: Appropriate - Mood Patient's Decription of Mood: "Okay" - Affect Observed Affect: Tense Affect Consistent with: Euthymia - Thought Process Patient's Thought Process: Coherent, Goal Directed Thought Content: No Passive Wish, No Suicidal Planning, No Homicidal Ideation, No Paranoid Ideation - Sensorium Experiencing Hallucinations: No, Sensorium is Clear - Level of Consciousness Level of Consciousness: Alert - Impulse Control Impulse Control: Intact - Insight and Judgement Insight and Judgement: Fair Assessment - Assessment Merits Inpatient Hospitalization: To Initiate Treatment, For Ongoing Evaluation , Consolidate Improvements, For Discharge Planning Inpatient DSM-IV Dx: OCD. Depressive disorder. Psychotic disorder Clinical Impression: 36 y/o male with history of suicidal behavior, psychiatric hospitalization, OCD , depression, psychosis, outpatient treatment. He was admitted after coming to the ED by car, with complaint of perceptual disturbances, distress, suicidal ideation, depression and anxiety, and an increase in intrusive thoughts of doing harm to loved ones (specifically his daughter). Stabilizing here. Improving clinically, with better relatedness, more engagement in program, and much milder overt distress. He is reporting reduced symptoms and big reduction in the intensity of suicidal and violent thoughts. Is safe on checks, adherent with routines, appropriate for 30 minute checks, staff pass, and visitation with children at family discretion. Medication management is with Zyprexa, Prozac, and low dose Depakote (routine Lipid panel ordered for Thursday). Based on ongoing symptoms, and relative impairment off baseline, he requires ongoing hospital care. Plan - Plan Treatment Plan: Name: CAROL STONE Birthdate: 1980 [id number] Continued Medication Management: Start Medication Medications: Current Medications Acetaminophen (Tylenol Tab*) 650 mg PO Q4H PRN PRN Reason: PAIN or TEMP > 101 F Last Admin: 01/14/17 09:31 Dose: 650 mg Al Hydrox/Mg Hydrox/Simethicone (Maalox Plus*) 30 ml PO Q4H PRN PRN Reason: INDIGESTION Buspirone HCl (Buspar Tab*) 20 mg PO BID [facility] Last Admin: 01/16/17 08:34 Dose: 20 mg Divalproex Sodium (Depakote Dr Tab(*)) 250 mg PO BID [facility] Last Admin: 01/16/17 08:34 Dose: 250 mg Fluoxetine HCl (Prozac Cap*) 120 mg PO DAILY [facility] Last Admin: 01/16/17 08:32 Dose: 120 mg Lisinopril (Prinivil Tab*) 10 mg PO DAILY [facility] Last Admin: 01/16/17 08:34 Dose: 10 mg Multivitamins (Theragran Tab*) 1 tab PO DAILY [facility] Last Admin: 01/16/17 08:34 Dose: 1 tab Nicotine (Nicotine Inhaler*) 10 mg INH Q2H PRN PRN Reason: CRAVING Olanzapine (Zyprexa *Odt*) 10 mg PO BEDTIME [facility] Last Admin: 01/15/17 20:34 Dose: 10 mg - Discharge Plan Discharge Plan: Outpatient Follow Up
[2017-01-16] MEDS: OLANzapine TAB*ODT* 10 MG TAB PO SCH (19:58)
[2017-01-17] MEDS ORDERED: Temazepam CAP* 15 MG PO PRN (08:52)
[2017-01-17] MEDS: FLUoxetine CAP* 20 MG PO SCH (08:57)
[2017-01-17] MEDS: Lisinopril TAB* 10 MG PO SCH (08:57)
[2017-01-17] MEDS: Vitamin THERAPEUTIC TAB PO SCH (08:57)
[2017-01-17] MEDS: busPIRone TAB* 10 MG PO SCH ×2 (08:57→20:16)
[2017-01-17] MEDS: Divalproex DR TAB(*) 250 MG PO SCH ×2 (08:57→20:16)
[2017-01-17] MEDS: OLANzapine TAB*ODT* 10 MG TAB PO SCH (20:16)
[2017-01-17] MEDS: clonazePAM TAB(*) 0.5 MG PO PRN (20:18)
[2017-01-18] MEDS: clonazePAM TAB(*) 0.5 MG PO PRN ×2 (08:48→19:30)
[2017-01-18] MEDS: Divalproex DR TAB(*) 250 MG PO SCH ×2 (08:49→20:34)
[2017-01-18] MEDS: Vitamin THERAPEUTIC TAB PO SCH (08:49)
[2017-01-18] MEDS: busPIRone TAB* 10 MG PO SCH ×2 (08:49→20:35)
[2017-01-18] MEDS: Lisinopril TAB* 10 MG PO SCH (08:49)
[2017-01-18] MEDS: FLUoxetine CAP* 20 MG PO SCH (08:50)
[2017-01-18] MEDS: Acetaminophen TAB* 325 MG PO PRN ×2 (11:42→17:29)
[2017-01-18] MEDS: OLANzapine TAB*ODT* 10 MG TAB PO SCH (20:34)
[2017-01-19] MEDS: Acetaminophen TAB* 325 MG PO PRN ×2 (05:46→11:59)
[2017-01-19] MEDS: FLUoxetine CAP* 20 MG PO SCH (08:24)
[2017-01-19] MEDS: clonazePAM TAB(*) 0.5 MG PO PRN (08:24)
[2017-01-19] MEDS: Lisinopril TAB* 10 MG PO SCH (08:25)
[2017-01-19] MEDS: Vitamin THERAPEUTIC TAB PO SCH (08:25)
[2017-01-19] MEDS: Divalproex DR TAB(*) 250 MG PO SCH (08:25)
[2017-01-19] MEDS: busPIRone TAB* 10 MG PO SCH (08:25)
[2017-01-19 11:42] VITALS: BP 154/90
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
== END 2017-01-19 16:50 | disposition home or self-care (01) | DRG 885 ==
LOC: ED 11:47 → BSU 20:04
PROVIDERS: ADMIT Psychiatry & Neurology Psychiatry; ATTEND Psychiatry & Neurology Psychiatry
DX: F20.0 Paranoid schizophrenia (principal); I10 Essential (primary) hypertension; F42.9 Obsessive-compulsive disorder, unspecified; F32.9 Major depressive disorder, single episode, unspecified; Z81.8 Family history of other mental and behavioral disorders; Z28.21 Immunization not carried out because of patient refusal
CPT/HCPCS: 36415; 80053; 80307; 80320; 80329; 81003; 81015; 84443; 85025; 87086; 93005; 99222; 99231; 99238; A9270-GY; G0480

== ENCOUNTER 2017-08-05 09:25 | Inpatient (IN) | payer BC, OTHER ==
[2017-08-05 11:03] LABS: Hematocrit 48 % (42-52); Hemoglobin 16.2 g/dl (14.0-18.0); Mean Corpuscular HGB Conc 34 g/dl (31-36); Mean Corpuscular Hemoglobin 31 pg (27-31); Mean Corpuscular Volume 90 fL (80-94); Mean Platelet Volume 7 um3 (7.4-10.4); Red Blood Count 5.31 10^6/ul (4.0-5.4); Red Cell Distribution Width 13 % (10.5-15); White Blood Count 8.9 10^3/ul (3.5-10.8)
[2017-08-05 11:13] LABS: ALT 25 U/L (7-52); AST 21 U/L (13-39); Albumin 4.6 g/dL (3.2-5.2); Alkaline Phosphatase 54 U/L (34-104); Anion Gap 5 mmol/L (2-11); BUN/Creatinine Ratio 14.4 (8-20); Blood Urea Nitrogen 16 mg/dL (6-24); CO2 Carbon Dioxide 28 mmol/L (22-32); Calcium 9.4 mg/dL (8.6-10.3); Chloride 102 mmol/L (101-111); EGFR African American 94.8 (>60); EGFR Non-African American 73.7 (>60); Globulin 3.2 g/dL (2-4); Glucose 88 mg/dL (70-100); Potassium 4.9 mmol/L (3.5-5.0); Sodium 135 mmol/L (133-145); Total Protein 7.8 g/dL (6.4-8.9)
[2017-08-05 11:44] LABS: Benzodiazepine Urine Screen None Detected (None Detect)
[2017-08-05 12:01] LABS: Acetaminophen < 15 mcg/mL; Alcohol < 10 mg/dL (<10); Salicylate < 2.50 mg/dL (<30)
[2017-08-05 12:24] LABS: TSH (Thyroid Stimulating Horm) 1.04 mcIU/mL (0.34-5.60)
[2017-08-05] MEDS ORDERED: Nicotine Inhaler* 10 MG AMP INH PRN (13:08)
[2017-08-05] MEDS ORDERED: Al Hydrox/Mg Hydrox/Simet LIQ* 30 ML UDC PO PRN (13:08)
[2017-08-05] MEDS ORDERED: Nicotine GUM* 2 MG PO PRN (13:08)
[2017-08-05] MEDS: OLANzapine TAB* 10 MG PO SCH (20:57)
[2017-08-05] MEDS: busPIRone TAB* 15 MG PO SCH (20:58)
[2017-08-05] MEDS: Divalproex DR TAB(*) 250 MG PO SCH (20:59)
[2017-08-06 04:00] LABS: Urine Bilirubin Negative (Negative); Urine Glucose Negative (Negative); Urine Nitrite Negative (Negative)
[2017-08-06 07:39] LABS: HDL Cholesterol 57.8 mg/dL
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
[2017-08-06] MEDS: busPIRone TAB* 15 MG PO SCH ×2 (08:50→21:21)
[2017-08-06] MEDS: Divalproex DR TAB(*) 250 MG PO SCH ×2 (08:50→21:20)
[2017-08-06] MEDS: Vitamin THERAPEUTIC TAB PO SCH (08:50)
[2017-08-06] MEDS: Lisinopril TAB* 10 MG PO SCH (08:51)
[2017-08-06] MEDS: clonazePAM TAB(*) 0.5 MG PO PRN (08:53)
[2017-08-06] MEDS ORDERED: FLUoxetine CAP* 20 MG PO SCH (09:00)
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
[2017-08-06] MEDS: OLANzapine TAB* 10 MG PO SCH (21:20)
[2017-08-06] MEDS: CMCS ClomiPRAMINE (NF) 25 MG CAP PO SCH (21:26)
[2017-08-07] MEDS: busPIRone TAB* 15 MG PO SCH ×3 (08:21→20:06)
[2017-08-07] MEDS: Vitamin THERAPEUTIC TAB PO SCH (08:21)
[2017-08-07] MEDS: Divalproex DR TAB(*) 250 MG PO SCH ×2 (08:21→20:06)
[2017-08-07] MEDS: Lisinopril TAB* 10 MG PO SCH (08:21)
--- NOTE | 2017-08-07 12:14 | PN ---
Subjective - Subjective Service Type: 02535 Hosp care 15 min low complexity Subjective: Patient noted to be social with select peers and staff in the milieu. Patient calm, pleasant, and cooperative with staff. He is participating in groups. Patient has ongoing PMA and is anxious in affect. He reports ongoing improvement in his memory and ability to express himself w/o delayed speech. He reports also, ongoing anxiety and DOLORES which causes patient to pursue in his mind the meaning of these associations. Patient reports ongoing guilt regarding his behavior affect being diagnosed with HIV. Patients reports not behaving like himself then. He reported a period of significant drug use, anger, and sleeping with men unprotected even though knowing his Dx. Patient reports correlation with the fact that a peer on the unit he spoke with works in the [employer] department. Also during the interview, patient noticed a newspaper clipping with title '...pled not-guilty..". Patient reported these events spoke to his internalized desire to be punished for what he did. Patient encouraged to forgive himself and focus his thoughts on his growth from that place. Patient consumed with correlations he sees on the unit and other LOAs. Patient reports fair sleep and appetite. He denies SI/HI and AH/VH. Objective - Appearance Appearance: Well Developed/Nourished Dysmorphic Features: No Hygiene: Normal Grooming: Fairly Well Kept - Behavior Psychomotor Activities: Normal Exhibits Abnormal Movement: No - Attitude and Relatedness Attitude and Relatedness: Cooperative Eye Contact: Fair - Speech Quality: Unpressured Latencies: Normal Quantity: Appropriate - Mood Patient's Decription of Mood: "I'm feeling better" - Affect Observed Affect: Constricted Affect Consistent with: Dysphoria - Thought Process Patient's Thought Process: Coherent Thought Content: No Passive Wish, No Suicidal Planning, No Homicidal Ideation, No Paranoid Ideation - Sensorium Experiencing Hallucinations: Yes Type of Hallucinations: Visual: No, Auditory: No, Command: No - Level of Consciousness Orientation: Yes Intact, Yes Orientated to Time, Yes Orientated to Place, Yes Orientated to Person - Impulse Control Impulse Control: Intact - Insight and Judgement Insight and Judgement: Fair - Group Participation Particating in Group Activities: Yes - Medication Management Medication Management Adherence: Yes Assessment - Assessment Merits Inpatient Hospitalization: For Immediate Safety, For Stabilization Inpatient DSM-IV Dx: ASSESSMENT: . 1. Bipolar 2 d/o, MRE depresed , severe w/PFs. 2. OCD. 3. Social Phobia. 4. Panic Disorder Plan - Plan Treatment Plan: Name: CAROL STONE Birthdate: 1980 [id number] PLAN: ------ 1. Continue admission to [facility] for safety and symptom mx. 2. Will D/C Paxil due to ineffectiveness at max dose. 3. Will D/C Latuda due to ineffectiveness. 4. Continue Olanzapine at 10mg po QHS for psychosis. 5. Continue Clomipramine 50mg po qhs for OCD, mood and anxiety. 6. Continue Depakote at 250mg po BID for mood stabilization/impulsivity. 7. Continue Klonopin at home dose of 0.5mg po BID. 8. Continue Buspar at 15mg po BID for mood/anxiety. 9. Obtain collateral from [facility] providers and . 10. Patient to participate in milieu activities and groups. Continued Medication Management: Different Medication Medications: Current Medications Acetaminophen (Tylenol Tab*) 650 mg PO Q4H PRN PRN Reason: for pain; or Temp >101 F Al Hydrox/Mg Hydrox/Simethicone (Maalox Plus*) 30 ml PO Q4H PRN PRN Reason: INDIGESTION Buspirone HCl (Buspar Tab *) 15 mg PO BID [facility] Last Admin: 08/07/17 09:27 Dose: 15 mg Clomipramine HCl (Clomipramine (Nf)) 50 mg PO BEDTIME [facility] Last Admin: 08/06/17 21:26 Dose: 50 mg Clonazepam (Klonopin Tab(*)) 0.5 mg PO BID PRN PRN Reason: AGITATION/ANXIETY/INSOMNIA Last Admin: 08/06/17 08:53 Dose: 0.5 mg Divalproex Sodium (Depakote Dr Tab(*)) 250 mg PO BID [facility] Last Admin: 08/07/17 08:21 Dose: 250 mg Lisinopril (Prinivil Tab*) 10 mg PO DAILY [facility] Last Admin: 08/07/17 08:21 Dose: 10 mg Multivitamins (Theragran Tab*) 1 tab PO DAILY [facility] Last Admin: 08/07/17 08:21 Dose: 1 tab Nicotine (Nicotine Inhaler*) 10 mg INH Q2H PRN PRN Reason: CRAVING Nicotine Polacrilex (Nicotine Gum*) 2 mg PO Q2H PRN PRN Reason: CRAVING Olanzapine (Zyprexa Tab*) 10 mg PO BEDTIME [facility] Last Admin: 08/06/17 21:20 Dose: 10 mg - Discharge Plan Discharge Plan: Outpatient Follow Up Outpatient Program: [facility]
[2017-08-07] MEDS: clonazePAM TAB(*) 0.5 MG PO PRN (13:30)
--- NOTE | 2017-08-07 14:37 | PN ---
MHU: Group Therapy Note - Service Type Service Type: 10719 Group Psychotherapy - Cognitive Behavioral Group Therapy ( CBT):Patient attended CBT programming this morning and presented with flat affect that did not vary with discussion. Although responsive to direct prompts to respond to questions, patient did not engage in spontaneous conversation.
[2017-08-07] MEDS ORDERED: Influenza VAC *QUAD* 2017-18* 0.5 ML SYRINGE IM ONE (19:00)
[2017-08-07] MEDS: CMCS ClomiPRAMINE (NF) 25 MG CAP PO SCH (20:06)
[2017-08-07] MEDS: OLANzapine TAB* 10 MG PO SCH (20:06)
[2017-08-08] MEDS: clonazePAM TAB(*) 0.5 MG PO PRN (08:32)
[2017-08-08] MEDS: Vitamin THERAPEUTIC TAB PO SCH (08:32)
[2017-08-08] MEDS: busPIRone TAB* 15 MG PO SCH (08:32)
[2017-08-08] MEDS: Divalproex DR TAB(*) 250 MG PO SCH (08:33)
[2017-08-08] MEDS: Lisinopril TAB* 10 MG PO SCH (08:33)
[2017-08-09] MEDS: busPIRone TAB* 15 MG PO SCH ×3 (09:38→20:17)
[2017-08-09] MEDS: Lisinopril TAB* 10 MG PO SCH (09:38)
[2017-08-09] MEDS: Vitamin THERAPEUTIC TAB PO SCH (09:38)
[2017-08-09] MEDS: Divalproex DR TAB(*) 250 MG PO SCH ×3 (09:39→20:17)
[2017-08-09] MEDS: clonazePAM TAB(*) 0.5 MG PO PRN ×2 (09:40→20:16)
--- NOTE | 2017-08-09 16:37 | PN ---
<MelissaAni - Last Filed: 08/09/17 17:03> Subjective - Subjective Service Type: 16212 Hosp care 15 min low complexity Subjective: Patient found in his room lying in bed but awake. Alert and oriented, speech is slow and organized. Endorses suicidal thoughts denies homicidal thoughts. Paranoid, feels people are talking about him and judging him. States that he is highly anxious when in the milieu and when in his room he is ruminating about ways he could kill himself. He was agreeable to coming out into the milieu with me, reports he is trying to keep a balance of time with others and time alone. States that he had a "good visit" with his 18 yr. old son and patient today. Objective - Appearance Appearance: Healthy Appearing Dysmorphic Features: No Hygiene: Normal Grooming: Fairly Well Kept - Behavior Psychomotor Activities: Normal Exhibits Abnormal Movement: No - Attitude and Relatedness Attitude and Relatedness: Withdrawn Eye Contact: Fair - Speech Quality: Unpressured Latencies: Normal Quantity: Appropriate - Mood Patient's Decription of Mood: "Anxious" - Affect Observed Affect: Constricted Affect Consistent with: Dysphoria - Thought Process Patient's Thought Process: Coherent Thought Content: Yes Passive Wish - endorses thinking of ways to kill himself when in his room alone., No Suicidal Planning, No Homicidal Ideation, No Paranoid Ideation - Sensorium Experiencing Hallucinations: No, Sensorium is Clear Type of Hallucinations: Visual: No, Auditory: No, Command: No - Level of Consciousness Level of Consciousness: Alert Orientation: Yes Intact, Yes Orientated to Time, Yes Orientated to Place, Yes Orientated to Person - Impulse Control Impulse Control: Intact - Insight and Judgement Insight and Judgement: Poor - Group Participation Particating in Group Activities: Yes - Medication Management Medication Management Adherence: Yes Assessment - Assessment Merits Inpatient Hospitalization: For Immediate Safety, For Stabilization Inpatient DSM-IV Dx: ASSESSMENT: . 1. Bipolar 2 d/o, MRE depresed , severe w/PFs. 2. OCD. 3. Social Phobia. 4. Panic Disorder Clinical Impression: 37 yr. old male with depressive d/o, OCD, anxiety d/o, panic d/o was brought into ED with worsening depression and suicidal ideation with planning and obsessing over this plan. 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 Has been seen at [facility] by , who is no longer there and was seen by who discontinued olanzapine and started Latuda. Patient states that despite increase in Latuda, depressive symptoms worsened over the last 2 weeks. On admission Latuda d'cd, olanzapine 10mg qhs, Chlormipramine 50 mg qhs, Depakote 250 mg bid started, with home medications of clonopin 0.5 mg bid, Buspar reduced from 30mg bid to 15 mg bid continued. Patient's has spoken with who has agreed to see patient in private practice. Patient endorses thinking about ways to while in his room alone. Per staff, he has been isolating more today and an effort will be made to keep in milieu more. He requires continued hospitalization for safety, continued evaluation and treatment. Plan - Plan Treatment Plan: Name: CAROL STONE Birthdate: 1980 [id number] Medications: Current Medications Acetaminophen (Tylenol Tab*) 650 mg PO Q4H PRN PRN Reason: for pain; or Temp >101 F Al Hydrox/Mg Hydrox/Simethicone (Maalox Plus*) 30 ml PO Q4H PRN PRN Reason: INDIGESTION Buspirone HCl (Buspar Tab *) 15 mg PO BID [facility] Last Admin: 08/09/17 09:38 Dose: 15 mg Clomipramine HCl (Clomipramine (Nf)) 50 mg PO BEDTIME [facility] Last Admin: 08/07/17 20:06 Dose: 50 mg Clonazepam (Klonopin Tab(*)) 0.5 mg PO BID PRN PRN Reason: AGITATION/ANXIETY/INSOMNIA Last Admin: 08/09/17 09:40 Dose: 0.5 mg Divalproex Sodium (Depakote Dr Tab(*)) 250 mg PO BID [facility] Last Admin: 08/09/17 09:39 Dose: 250 mg Lisinopril (Prinivil Tab*) 10 mg PO DAILY [facility] Last Admin: 08/09/17 09:38 Dose: 10 mg Multivitamins (Theragran Tab*) 1 tab PO DAILY [facility] Last Admin: 08/09/17 09:38 Dose: 1 tab Nicotine (Nicotine Inhaler*) 10 mg INH Q2H PRN PRN Reason: CRAVING Nicotine Polacrilex (Nicotine Gum*) 2 mg PO Q2H PRN PRN Reason: CRAVING Olanzapine (Zyprexa Tab*) 10 mg PO BEDTIME [facility] Last Admin: 08/07/17 20:06 Dose: 10 mg <JeffChun - Last Filed: 08/09/17 18:11> Subjective - Subjective Subjective: Reviewed this note written by student psychiatric nurse practitioner, Ani Torres, and approved it after discussion with her. Plan - Plan Treatment Plan: Name: CAROL STONE Birthdate: 1980 [id number] Medications: Current Medications Acetaminophen (Tylenol Tab*) 650 mg PO Q4H PRN PRN Reason: for pain; or Temp >101 F Al Hydrox/Mg Hydrox/Simethicone (Maalox Plus*) 30 ml PO Q4H PRN PRN Reason: INDIGESTION Buspirone HCl (Buspar Tab *) 15 mg PO BID [facility] Last Admin: 08/09/17 18:00 Dose: Not Given Clomipramine HCl (Clomipramine (Nf)) 50 mg PO BEDTIME [facility] Last Admin: 08/09/17 18:00 Dose: Not Given Clonazepam (Klonopin Tab(*)) 0.5 mg PO BID PRN PRN Reason: AGITATION/ANXIETY/INSOMNIA Last Admin: 08/09/17 09:40 Dose: 0.5 mg Divalproex Sodium (Depakote Dr Tab(*)) 250 mg PO BID [facility] Last Admin: 08/09/17 18:00 Dose: Not Given Lisinopril (Prinivil Tab*) 10 mg PO DAILY [facility] Last Admin: 08/09/17 09:38 Dose: 10 mg Multivitamins (Theragran Tab*) 1 tab PO DAILY [facility] Last Admin: 08/09/17 09:38 Dose: 1 tab Nicotine (Nicotine Inhaler*) 10 mg INH Q2H PRN PRN Reason: CRAVING Nicotine Polacrilex (Nicotine Gum*) 2 mg PO Q2H PRN PRN Reason: CRAVING Olanzapine (Zyprexa Tab*) 10 mg PO BEDTIME [facility] Last Admin: 08/09/17 18:00 Dose: Not Given
[2017-08-09] MEDS: OLANzapine TAB* 10 MG PO SCH ×2 (18:00→20:17)
[2017-08-09] MEDS: CMCS ClomiPRAMINE (NF) 25 MG CAP PO SCH ×2 (18:00→20:17)
[2017-08-10] MEDS: clonazePAM TAB(*) 0.5 MG PO PRN ×2 (08:30→20:13)
[2017-08-10] MEDS: busPIRone TAB* 15 MG PO SCH ×2 (08:31→20:12)
[2017-08-10] MEDS: Lisinopril TAB* 10 MG PO SCH (08:31)
[2017-08-10] MEDS: Divalproex DR TAB(*) 250 MG PO SCH ×2 (08:31→20:12)
[2017-08-10] MEDS: Vitamin THERAPEUTIC TAB PO SCH (08:31)
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
[2017-08-10] MEDS: CMCS ClomiPRAMINE (NF) 25 MG CAP PO SCH (20:12)
[2017-08-10] MEDS: OLANzapine TAB* 10 MG PO SCH (20:12)
[2017-08-11] MEDS ORDERED: ALPRAZolam TAB* 0.5 MG PO ONE (03:00)
[2017-08-11] MEDS: busPIRone TAB* 15 MG PO SCH ×2 (08:20→20:20)
[2017-08-11] MEDS: Vitamin THERAPEUTIC TAB PO SCH (08:20)
[2017-08-11] MEDS: clonazePAM TAB(*) 0.5 MG PO PRN ×2 (08:20→20:21)
[2017-08-11] MEDS: Divalproex DR TAB(*) 250 MG PO SCH ×2 (08:21→20:21)
[2017-08-11] MEDS: Lisinopril TAB* 10 MG PO SCH (08:21)
--- NOTE | 2017-08-11 11:05 | PN ---
Subjective - Subjective Service Type: [id number] Hosp care 15 min low complexity Subjective: Patient noted to be more depressed in affect and manner on interview today. He reports starting to feel better on Thursday, but experiencing a drop in his mood this weekend. Patient reports drop in mood after talking to his son on the phone. Patient reports it was his son's B-day over the weekend. He reported his son asked him, "why did you miss my birthday daddy". Patient started on 1:1 observations by the weekend provider due to patient report of SI with plan to hang himself with his pants. Patient was placed in paper scrubs. Today patient reports not having intent to hang himself. Patient reports his symptom of obsessing about his suicide and planning it. He reports he has no intent to follow through with these plans nor with the plans to kill himself by CO in his shed, which were his plans prior to admission. Patient reports sleep was affected last night. He reports poor sleep due to his roommate having medical attention in the room having falling due to light headedness. Patient reports good sleep besides last night. Patient is med compliant. He reports no med s/e's. He is amenable to increasing dose of Olanzapine from 10mg to 15mg, Clomipramine from 50mg to 100mg daily, and Klonopin from 0.5mg to 1mg po BID PRN. Patient reports increased anxiety in paper scrubs. He reports feeling as though everyone in the milieu is looking at him and assuming he's done something terrible to require a staff to follow him. Patient again reports feeling safe on the unit and denies intent to harm himself. He reports no AHs over the weekend, but reports he told the weekend provider he' s had hx of them. Patient denies SI/HI and AH/VH. Appetite is wnl. Objective - Appearance Appearance: Well Developed/Nourished Dysmorphic Features: No Hygiene: Normal Grooming: Fairly Well Kept - Behavior Psychomotor Activities: Abnormal-Decreased Exhibits Abnormal Movement: No - Attitude and Relatedness Attitude and Relatedness: Cooperative Eye Contact: Poor - Speech Quality: Unpressured Latencies: Long Quantity: Terse - Mood Patient's Decription of Mood: "Anxious" - Affect Observed Affect: Depressed Affect Consistent with: Dysphoria - Thought Process Patient's Thought Process: Coherent Thought Content: No Passive Wish, No Suicidal Planning, No Homicidal Ideation, No Paranoid Ideation - Sensorium Experiencing Hallucinations: No, Sensorium is Clear Type of Hallucinations: Visual: No, Auditory: No, Command: No - Level of Consciousness Level of Consciousness: Alert Orientation: Yes Intact, Yes Orientated to Time, Yes Orientated to Place, Yes Orientated to Person - Impulse Control Impulse Control: Intact - Insight and Judgement Insight and Judgement: Fair - Group Participation Particating in Group Activities: Yes - Medication Management Medication Management Adherence: Yes Assessment - Assessment Merits Inpatient Hospitalization: For Immediate Safety, For Stabilization Inpatient DSM-IV Dx: ASSESSMENT: . 1. Bipolar 2 d/o, MRE depresed , severe w/PFs. 2. OCD. 3. Social Phobia. 4. Panic Disorder Plan - Plan Treatment Plan: Name: CAROL STONE Birthdate: 1980 [id number] PLAN: ------ 1. Continue admission to [facility] for safety and symptom mx. 2. Paxil D/C'd due to ineffectiveness at max dose. 3. Latuda D/C'd due to ineffectiveness. 4. Will increase Olanzapine from 10mg po qhs to 15mg po QHS for psychosis. 5. Will increase Clomipramine from 50mg po qhs to 100mg po qhs for OCD, mood and anxiety. 6. Continue Depakote at 250mg po BID for mood stabilization/impulsivity. 7. Increase Klonopin from 0.5mg po BID PRN to 1.0mg po BID PRN for breakthrough anxiety. 8. Continue Buspar at 15mg po BID for mood/anxiety. 9. Obtain collateral from [facility] providers and . 10. Patient to participate in milieu activities and groups. Medications: Current Medications Acetaminophen (Tylenol Tab*) 650 mg PO Q4H PRN PRN Reason: for pain; or Temp >101 F Al Hydrox/Mg Hydrox/Simethicone (Maalox Plus*) 30 ml PO Q4H PRN PRN Reason: INDIGESTION Buspirone HCl (Buspar Tab *) 15 mg PO BID [facility] Last Admin: 08/11/17 08:20 Dose: 15 mg Clomipramine HCl (Clomipramine (Nf)) 50 mg PO BEDTIME [facility] Last Admin: 08/10/17 20:12 Dose: 50 mg Clonazepam (Klonopin Tab(*)) 0.5 mg PO BID PRN PRN Reason: AGITATION/ANXIETY/INSOMNIA Last Admin: 08/11/17 08:20 Dose: 0.5 mg Divalproex Sodium (Depakote Dr Tab(*)) 250 mg PO BID [facility] Last Admin: 08/11/17 08:21 Dose: 250 mg Lisinopril (Prinivil Tab*) 10 mg PO DAILY [facility] Last Admin: 08/11/17 08:21 Dose: 10 mg Multivitamins (Theragran Tab*) 1 tab PO DAILY [facility] Last Admin: 08/11/17 08:20 Dose: 1 tab Nicotine (Nicotine Inhaler*) 10 mg INH Q2H PRN PRN Reason: CRAVING Nicotine Polacrilex (Nicotine Gum*) 2 mg PO Q2H PRN PRN Reason: CRAVING Olanzapine (Zyprexa Tab*) 10 mg PO BEDTIME [facility] Last Admin: 08/10/17 20:12 Dose: 10 mg - Discharge Plan Discharge Plan: Outpatient Follow [facility]
[2017-08-11] MEDS: OLANzapine TAB* 5 MG PO SCH (20:20)
[2017-08-11] MEDS: ClomiPRAMINE (NF) 25 MG CAP PO SCH (20:21)
[2017-08-12] MEDS: Vitamin THERAPEUTIC TAB PO SCH (08:20)
[2017-08-12] MEDS: Divalproex DR TAB(*) 250 MG PO SCH (08:20)
[2017-08-12] MEDS: busPIRone TAB* 15 MG PO SCH ×2 (08:21→20:02)
[2017-08-12] MEDS: clonazePAM TAB(*) 0.5 MG PO PRN ×2 (08:22→20:02)
[2017-08-12] MEDS: Lisinopril TAB* 10 MG PO SCH (08:22)
[2017-08-12] MEDS: Acetaminophen TAB* 325 MG PO PRN (09:09)
--- NOTE | 2017-08-12 10:19 | PN ---
Subjective - Subjective Service Type: [id number] Hosp care 15 min low complexity Subjective: Patient visited by his today. He reports the visit went well. Patient reports his mood as "better". His affect is full and patient has good eye contact. He reports ongoing good sleep and appetite. Patient is med compliant and denies s/e on increased dose of Clomipramine last night from 50mg to 100mg and the increased dose of Olanzapine from 10mg to 15mg po qhs. Patient reports decreased obsessing today. He reports increased ability to concentrate, read, and socialize. Patient reports no SI/HI or AH/VH. He reports prior to changing physicians, be had been stabilized on Abilify and Olanzapine by Dr. Calvin; changed to Latuda only by Dr. Conteh. Per call to , [facility]#[phone], Patient had a long period of stability on concurrent Abilify and Olanzapine therapy. reports additional stressor that she has within the last 4 weeks found a lump in her breast. She reports f/u appt on last Thursday showed the lump to be a lipoma. She reports this added to patient's stress prior to admission. reports patient has chronic SI and when stressed does obsess on ways to hurt himself. 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 She reports he reported to her yesterday feelings of worthlessness and inadequacy as a man and a father. Objective - Appearance Appearance: Well Developed/Nourished Dysmorphic Features: No Hygiene: Normal Grooming: Fairly Well Kept - Behavior Psychomotor Activities: Normal Exhibits Abnormal Movement: No - Attitude and Relatedness Attitude and Relatedness: Cooperative Eye Contact: Fair - Speech Quality: Unpressured Latencies: Normal Quantity: Appropriate - Mood Patient's Decription of Mood: "Good" - Affect Observed Affect: Good Affect Consistent with: Euthymia - Thought Process Patient's Thought Process: Coherent Thought Content: No Passive Wish, No Suicidal Planning, No Homicidal Ideation, No Paranoid Ideation - Sensorium Experiencing Hallucinations: No, Sensorium is Clear Type of Hallucinations: Visual: No, Auditory: No, Command: No - Level of Consciousness Level of Consciousness: Alert Orientation: Yes Intact, Yes Orientated to Time, Yes Orientated to Place, Yes Orientated to Person - Impulse Control Impulse Control: Intact - Insight and Judgement Insight and Judgement: Good - Group Participation Particating in Group Activities: Yes - Medication Management Medication Management Adherence: Yes Assessment - Assessment Merits Inpatient Hospitalization: For Immediate Safety, For Stabilization Inpatient DSM-IV Dx: ASSESSMENT: . 1. Bipolar 2 d/o, MRE depresed , severe w/PFs. 2. OCD. 3. Social Phobia. 4. Panic Disorder Plan - Plan Treatment Plan: Name: CAROL STONE Birthdate: 1980 [id number] PLAN: ------ 1. Continue admission to [facility] for safety and symptom mx. 2. Paxil D/C'd due to ineffectiveness at max dose. 3. Latuda D/C'd due to ineffectiveness. 4. Continue Olanzapine at 15mg po QHS for psychosis. 5. Continue Clomipramine at 100mg po qhs for OCD, mood and anxiety. 6. Will D/C Depakote due so to not cause poly-pharmacy. Patient reports and concurs longest period of stability occurred on dual therapy of Abilify and Olanzapine for psychosis/ mood stabilization/ impulsivity. 7. Continue Klonopin 1.0mg po BID PRN for breakthrough anxiety. 8. Continue Buspar at 15mg po BID for mood/anxiety. 9. Obtain collateral from [facility] providers and . 10. Patient to participate in milieu activities and groups. Medications: Current Medications Acetaminophen (Tylenol Tab*) 650 mg PO Q4H PRN PRN Reason: for pain; or Temp >101 F Last Admin: 08/12/17 09:09 Dose: 650 mg Al Hydrox/Mg Hydrox/Simethicone (Maalox Plus*) 30 ml PO Q4H PRN PRN Reason: INDIGESTION Buspirone HCl (Buspar Tab *) 15 mg PO BID [facility] Last Admin: 08/12/17 08:21 Dose: 15 mg Clomipramine HCl (Clomipramine (Nf)) 100 mg PO BEDTIME [facility] Last Admin: 08/11/17 20:21 Dose: 100 mg Clonazepam (Klonopin Tab(*)) 1 mg PO BID PRN PRN Reason: AGITATION/ANXIETY/INSOMNIA Last Admin: 08/12/17 08:22 Dose: 1 mg Divalproex Sodium (Depakote Dr Tab(*)) 250 mg PO BID [facility] Last Admin: 08/12/17 08:20 Dose: 250 mg Lisinopril (Prinivil Tab*) 10 mg PO DAILY [facility] Last Admin: 08/12/17 08:22 Dose: 10 mg Multivitamins (Theragran Tab*) 1 tab PO DAILY [facility] Last Admin: 08/12/17 08:20 Dose: 1 tab Nicotine (Nicotine Inhaler*) 10 mg INH Q2H PRN PRN Reason: CRAVING Nicotine Polacrilex (Nicotine Gum*) 2 mg PO Q2H PRN PRN Reason: CRAVING Olanzapine (Zyprexa Tab*) 15 mg PO BEDTIME [facility] Last Admin: 08/11/17 20:20 Dose: 15 mg - Discharge Plan Discharge Plan: [facility]
--- NOTE | 2017-08-12 13:16 | PN ---
MHU: Group Therapy Note - Service Type Service Type: [id number] Group Psychotherapy - Cognitive Behavioral Group Therapy ( CBT):Patient was attentive and participatory in CBT programming this morning, and remained in good behavioral control. Patient expressed positive insights regarding relevant treatment interventions and goals.
[2017-08-12] MEDS: ClomiPRAMINE (NF) 25 MG CAP PO SCH (20:01)
[2017-08-12] MEDS: OLANzapine TAB* 5 MG PO SCH (20:01)
[2017-08-13] MEDS ORDERED: ARIPiprazole TAB* 5 MG PO SCH (09:00)
[2017-08-13] MEDS: Vitamin THERAPEUTIC TAB PO SCH (10:02)
[2017-08-13] MEDS: ARIPiprazole TAB* 5 MG PO SCH (10:02)
[2017-08-13] MEDS: Lisinopril TAB* 10 MG PO SCH (10:03)
[2017-08-13] MEDS: busPIRone TAB* 15 MG PO SCH ×2 (10:03→20:09)
[2017-08-13] MEDS: clonazePAM TAB(*) 0.5 MG PO PRN ×2 (10:04→20:10)
--- NOTE | 2017-08-13 13:20 | PN ---
Subjective - Subjective Service Type: [id number] Hosp care 15 min low complexity Subjective: Patient visiting with on my approach. Patient noted to be full in affect and smiles at times during the interview. Patient and report significant improvement in symptoms on admission. He reports his mood as "good". His eye contact is appropriate and engaged. He reports ongoing good sleep and appetite. Patient is med compliant and denies s/e's on meds, including Abilify 7.5mg po qam started this morning. Patient no obsessing today. He reports good engagement today in groups and displays future oriented TC reporting a desire to pursue CBT. He reports increased ability to concentrate, read, and socialize. Patient reports no SI/HI or AH/VH. Patient reports feeling ready for discharge. reports feeling comfortable with patient discharging home tomorrow. Objective - Appearance Appearance: Well Developed/Nourished, Healthy Appearing Dysmorphic Features: No Hygiene: Normal Grooming: Fairly Well Kept - Behavior Psychomotor Activities: Normal Exhibits Abnormal Movement: No - Attitude and Relatedness Attitude and Relatedness: Cooperative Eye Contact: Good - Speech Quality: Unpressured Latencies: Normal Quantity: Appropriate - Mood Patient's Decription of Mood: "Good" - Affect Observed Affect: Good Affect Consistent with: Euthymia - Thought Process Patient's Thought Process: Coherent Thought Content: No Passive Wish, No Suicidal Planning, No Homicidal Ideation, No Paranoid Ideation - Sensorium Experiencing Hallucinations: No, Sensorium is Clear Type of Hallucinations: Visual: No, Auditory: No, Command: No - Level of Consciousness Level of Consciousness: Alert Orientation: Yes Intact, Yes Orientated to Time, Yes Orientated to Place, Yes Orientated to Person - Impulse Control Impulse Control: Intact - Insight and Judgement Insight and Judgement: Fair - Group Participation Particating in Group Activities: Yes - Medication Management Medication Management Adherence: Yes Assessment - Assessment Inpatient DSM-IV Dx: ASSESSMENT: . 1. Bipolar 2 d/o, MRE depresed , severe w/PFs. 2. OCD. 3. Social Phobia. 4. Panic Disorder Plan - Plan Treatment Plan: Name: CAROL STONE Birthdate: 1980 [id number] PLAN: ------ 1. Continue admission to [facility] for safety and symptom mx. 2. Paxil D/C'd due to ineffectiveness at max dose. 3. Latuda D/C'd due to ineffectiveness. 4. Continue Olanzapine at 15mg po QHS for psychosis. 5. Continue Clomipramine at 100mg po qhs for OCD, mood and anxiety. 6. Will D/C Depakote due so to not cause poly-pharmacy. Patient reports and concurs longest period of stability occurred on dual therapy 7. Continue Abilify at 7.5mg po qam for psychosis/ mood stabilization/ impulsivity. 8. Continue Klonopin 1.0mg po BID PRN for breakthrough anxiety. 9. Continue Buspar at 15mg po BID for mood/anxiety. 10. [facility] and . 11. Patient to participate in milieu activities and groups. Continued Medication Management: Start Medication Medications: Current Medications Acetaminophen (Tylenol Tab*) 650 mg PO Q4H PRN PRN Reason: for pain; or Temp >101 F Last Admin: 08/12/17 09:09 Dose: 650 mg Al Hydrox/Mg Hydrox/Simethicone (Maalox Plus*) 30 ml PO Q4H PRN PRN Reason: INDIGESTION Aripiprazole (Abilify Tab*) 7.5 mg PO DAILY [facility] Last Admin: 08/13/17 10:02 Dose: 7.5 mg Buspirone HCl (Buspar Tab *) 15 mg PO BID [facility] Last Admin: 08/13/17 10:03 Dose: 15 mg Clomipramine HCl (Clomipramine (Nf)) 100 mg PO BEDTIME [facility] Last Admin: 08/12/17 20:01 Dose: 100 mg Clonazepam (Klonopin Tab(*)) 1 mg PO BID PRN PRN Reason: AGITATION/ANXIETY/INSOMNIA Last Admin: 08/13/17 10:04 Dose: 1 mg Lisinopril (Prinivil Tab*) 10 mg PO DAILY [facility] Last Admin: 08/13/17 10:03 Dose: 10 mg Multivitamins (Theragran Tab*) 1 tab PO DAILY [facility] Last Admin: 08/13/17 10:02 Dose: 1 tab Nicotine (Nicotine Inhaler*) 10 mg INH Q2H PRN PRN Reason: CRAVING Nicotine Polacrilex (Nicotine Gum*) 2 mg PO Q2H PRN PRN Reason: CRAVING Olanzapine (Zyprexa Tab*) 15 mg PO BEDTIME [facility] Last Admin: 08/12/17 20:01 Dose: 15 mg - Discharge Plan Discharge Plan: Outpatient Follow Up
--- NOTE | 2017-08-13 14:17 | PN ---
MHU: Group Therapy Note - Service Type Service Type: [id number] Group Psychotherapy - Cognitive Behavioral Group Therapy ( CBT):Patient was attentive and participatory in CBT programming this morning, and remained in good behavioral control. Patient expressed positive insights regarding relevant treatment interventions and goals.
[2017-08-13] MEDS: ClomiPRAMINE (NF) 25 MG CAP PO SCH (20:09)
[2017-08-13] MEDS: OLANzapine TAB* 5 MG PO SCH (20:09)
[2017-08-14] MEDS: clonazePAM TAB(*) 0.5 MG PO PRN (08:36)
[2017-08-14] MEDS: ARIPiprazole TAB* 5 MG PO SCH (08:37)
[2017-08-14] MEDS: Vitamin THERAPEUTIC TAB PO SCH (08:37)
[2017-08-14] MEDS: busPIRone TAB* 15 MG PO SCH (08:37)
[2017-08-14] MEDS: Lisinopril TAB* 10 MG PO SCH (08:37)
--- NOTE | 2017-08-14 10:19 | DS ---
Subjective - Subjective Service Types: 94889 Hosp DC Day Mgmt simple under 30 min Subjective: Patient noted to be visible in the milieu, pleasant, social with peers and attending groups. Patient is sitting with his who has come to pick him up at discharge. Patient reports ongoing decreased obsessions, increased concentration, and increased sense of being able to engage information in groups, process, and express his thoughts. Patient is med compliant and denies med s/e's. Patient is bright in affect, linear in TP, and future oriented and TC. Patient is A&Ox4, linear and GD in TP, and future oriented in TC. Patient reports good sleep and appetite. Patient again denies SI/HI and AH/VH. Patient is psychiatrically stable. Discharge plan has been discussed and patient is amenable and acknowledges understanding. Patient instructed to call the crisis hotline, 911, or self present to a local ED if SI recurs. Patient was amenable and acknowledged understanding of family and community supports. Patient will be discharged home with his who has come to pick him up. Objective - Appearance Appearance: Well Developed/Nourished Dysmorphic Features: No Hygiene: Normal Grooming: Well Kept - Behavior Psychomotor Activities: Normal Exhibits Abnormal Movement: No - Attitude and Relatedness Attitude and Relatedness: Cooperative Eye Contact: Good - Speech Quality: Unpressured Latencies: Normal Quantity: Appropriate - Mood Patient's Decription of Mood: "Good" - Affect Observed Affect: Good Affect Consistent with: Euthymia - Thought Process Patient's Thought Process: Coherent Thought Content: No Passive Wish, No Suicidal Planning, No Homicidal Ideation, No Paranoid Ideation - Sensorium Experiencing Hallucinations: No, Sensorium is Clear Type of Hallucinations: Visual: No, Auditory: No, Command: No - Level of Consciousness Level of Consciousness: Alert Orientation: Yes Intact, Yes Orientated to Time, Yes Orientated to Place, Yes Orientated to Person - Impulse Control Impulse Control: Intact - Insight and Judgement Insight and Judgement: Fair - Group Participation Particating in Group Activities: Yes - Medication Management Medication Management Adherence: Yes Treatment Course & Assessment Clinical Course & Impression: HOSPITAL COURSE: Patient is a 37yo male with PPHx significant for depressive d/o, anxiety d/o, OCD, and Panic d/o. Patient presents to the [facility], brought in by his , reporting worsening depression and neurovegetative symptoms associated with SI and plan. Patient reports also that he obsesses about his suicide plan which is to close himself off in a shed he owns. He reports plan to kill himself by CO poisoning allowing a gas generator to run in the shed. Patient reports he purchased the gasoline for the generator 3 days ago. Of note, patient has recently had changes in his psychotropic med regimen. He reports approx 2 months ago his psychiatrist changed from Dr. Calvin who was leaving [facility]. He started then with Dr. Conteh. At that time patient's Olanzapine was discontinued and patient was started on Latuda 40mg po daily. Patient reports no benefit and reports 2 weeks ago Latuda was increased to 60mg po daily. Patient reports ongoing worsening of depression and SI over the last 2 weeks. Patient reports his primary trigger his current course work. Patient attends college for a pharmacy degree. He reports this semester having 8 classes which he now is overwhelmed by. Patient reports increased anxiety with episodes of panic attacks over the last 2 weeks. He also reports worsening OCDsymptoms. Patient reports during episodes of significant stress his obsessions become dark. He reports obsessing on ways to kill himself and reports he has obsessed on sexually molesting his daughters. Patient reports decreased memory, concentration and motivation. He reports excessive sleep and reports feelings of hopelessness, helplessness, and worthlessness. Patient reports current paranoid ideations and AI(thoughts to assault his daughters and thoughts to hurt people in general). Patient has hx of s. Alcohol nor illicit substance use play a role in this presentation. Patient has been MH med and appt compliant. On the unit, patient is delayed in response, demonstrating poor memory on interview and generalized slowed cognition. +PMR. Patient reports ongoing poor mood and SI. He reports feeling safe on the unit and denies planning. On day of admission, D/C'd Paxil due to ineffectiveness at max dose. D/C'd Latuda due to ineffectiveness. Re-started Olanzapine at 10mg po QHS for psychosis. Patient gave informed consent to start Clomipramine 50mg po qhs for OCD, mood and anxiety. Also Depakote was started at 250mg po BID for mood stabilization/impulsivity. Klonopin at home dose of 0.5mg po BID was continued for anxiety. Buspar also continued at reduced dose from 30mg po BID to 15mg po BID for anxiety. Patient showed improvement on the above regimen early in admission. Patient symptoms and obsessions over suicide returned over the weekend after admission after talking to his son on the phone. Patient reports it was his son' s B-day over the weekend. He reported his son asked him, "why did you miss my birthday daddy". Patient started on 1:1 observations by the weekend provider due to patient report of SI with plan0 to hang himself with his pants. Patient was placed in paper scrubs. On admission day #5 amenable to increasing dose of Olanzapine from 10mg to 15mg, Clomipramine from 50mg to 100mg daily, and Klonopin from 0.5mg to 1mg po BID PRN. Patient reports increased anxiety in paper scrubs. He reports feeling as though everyone in the milieu is looking at him and assuming he's done something terrible to require a staff to follow him. Per call to , Leesa#[phone], Patient had a long period of stability on concurrent Abilify and Olanzapine therapy. reports additional stressor that she has within the last 4 weeks found a lump in her breast. She reports f/u appt on last Thursday showed the lump to be a lipoma. She reports this added to patient's stress prior to admission. reports patient has chronic SI and when stressed does obsess on ways to hurt himself. 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 She reports he reported to her yesterday feelings of worthlessness and inadequacy as a man and a father. On hospital day #6 continued Olanzapine at 15mg po QHS for psychosis, continue Clomipramine at 100mg po qhs for OCD, mood and anxiety. D/C'd Depakote due so to not cause poly-pharmacy. Patient reported and concurs longest period of stability occurred on dual therapy of Abilify and Olanzapine for psychosis/ mood stabilization/ impulsivity. Continued Klonopin 1.0mg po BID PRN for breakthrough anxiety. Continued Buspar at 15mg po BID for mood/anxiety. Started Abilify 7.5mg po QAM as adjunctive antipsychotic and continued Olanzapine at 15mg po qhs. On hospital day #6, patient visiting with on my approach. Patient noted to be full in affect and smiles at times during the interview. Patient and report significant improvement in symptoms on admission. He reports his mood as "good". His eye contact is appropriate and engaged. He reports ongoing good sleep and appetite. Patient is med compliant and denies s/e's on meds, including Abilify 7.5mg po qam started this morning. Patient no obsessing today. He reports good engagement today in groups and displays future oriented TC reporting a desire to pursue CBT. He reports increased ability to concentrate, read, and socialize. Patient reports no SI/HI or AH/VH. Patient reports feeling ready for discharge. reports feeling comfortable with patient discharging home tomorrow. On day of discharge, patient noted to be visible in the milieu, pleasant, social with peers and attending groups. Patient is sitting with his who has come to pick him up at discharge. Patient reports ongoing decreased obsessions, increased concentration, and increased sense of being able to engage information in groups, process, and express his thoughts. Patient is med compliant and denies med s/e's. Patient is bright in affect, linear in TP, and future oriented and TC. Patient is A&Ox4, linear and GD in TP, and future oriented in TC. Patient reports good sleep and appetite. Patient again denies SI/HI and AH/VH. Patient is psychiatrically stable. Discharge plan has been discussed and patient is amenable and acknowledges understanding. Patient instructed to call the crisis hotline, 911, or self present to a local ED if SI recurs. Patient was amenable and acknowledged understanding of family and community supports. Patient will be discharged home with his who has come to pick him up. Consultants: none Discharge Meds: Home Medications Medication Instructions Recorded Confirmed Type Lisinopril TAB* [Prinivil TAB 10 10 mg PO DAILY 08/05/17 08/05/17 History MG*] ARIPiprazole TAB* [Abilify TAB*] 7.5 mg PO DAILY #30 tab 08/14/17 Rx ClomiPRAMINE (NF) [Clomipramine 100 mg PO BEDTIME #120 cap 08/14/17 Rx (NF)] Lisinopril TAB* [Prinivil TAB 10 10 mg PO DAILY #30 tab 08/14/17 Rx MG*] OLANzapine TAB* [Zyprexa 5 MG TAB*] 15 mg PO BEDTIME #90 tab 08/14/17 Rx Vitamin THERAPEUTIC TAB* 1 tab PO DAILY #30 tab 08/14/17 Rx [Theragran TAB*] busPIRone TAB* [Buspar TAB *] 15 mg PO BID #60 tab 08/14/17 Rx clonazePAM TAB(*) [Klonopin TAB(*)] 1 mg PO BID PRN #120 tab MDD 2mg 08/14/17 Rx PERTINENT LABS: 08/05/17 08/05/17 08/05/17 10:46 10:46 11:05 WBC 8.9 RBC 5.31 Hgb 16.2 Hct 48 MCV 90 MCH 31 MCHC 34 RDW 13 Plt Count 329 MPV 7 L Neut % (Auto) 68.9 Lymph % (Auto) 23.0 L [place] % (Auto) 5.5 Eos % (Auto) 2.2 Baso % (Auto) 0.4 Absolute Neuts (auto) 6.1 Absolute Lymphs (auto) 2.1 Absolute Monos (auto) 0.5 Absolute Eos (auto) 0.2 Absolute Basos (auto) 0 Absolute Nucleated RBC 0.01 Nucleated RBC % 0.1 Sodium 135 Potassium 4.9 Chloride 102 Carbon Dioxide 28 Anion Gap 5 BUN 16 Creatinine 1.11 Est GFR ( Amer) 94.8 Est GFR (Non-Af Amer) 73.7 BUN/Creatinine Ratio 14.4 Glucose 88 Hemoglobin A1c Calcium 9.4 Total Bilirubin 1.60 H AST 21 ALT 25 Alkaline Phosphatase 54 Total Protein 7.8 Albumin 4.6 Globulin 3.2 Albumin/Globulin Ratio 1.4 Triglycerides Cholesterol LDL Cholesterol HDL Cholesterol TSH 1.04 Urine Color Urine Appearance Urine pH Ur Specific [place] Urine Protein Urine Ketones Urine Blood Urine Nitrate Urine Bilirubin Urine Urobilinogen Ur Leukocyte Esterase Urine Glucose Salicylates < 2.50 Urine Opiates Screen None detected Acetaminophen < 15 Ur Barbiturates Screen None detected Valproic Acid Ur Phencyclidine Scrn None detected Ur Amphetamines Screen None detected U Benzodiazepines Scrn None detected Urine Cocaine Screen None detected U Cannabinoids Screen None detected Serum Alcohol < 10 08/05/17 08/06/17 08/06/17 11:05 07:01 07:01 WBC RBC Hgb Hct MCV MCH MCHC RDW Plt Count MPV Neut % (Auto) Lymph % (Auto) [place] % (Auto) Eos % (Auto) Baso % (Auto) Absolute Neuts (auto) Absolute Lymphs (auto) Absolute Monos (auto) Absolute Eos (auto) Absolute Basos (auto) Absolute Nucleated RBC Nucleated RBC % Sodium Potassium Chloride Carbon Dioxide Anion Gap BUN Creatinine Est GFR ( Amer) Est GFR (Non-Af Amer) BUN/Creatinine Ratio Glucose Hemoglobin A1c 5.6 Calcium Total Bilirubin AST ALT Alkaline Phosphatase Total Protein Albumin Globulin Albumin/Globulin Ratio Triglycerides 109 Cholesterol 188 LDL Cholesterol 108 HDL Cholesterol 57.8 TSH Urine Color Straw Urine Appearance Clear Urine pH 7.0 Ur Specific [place] 1.006 L Urine Protein Negative Urine Ketones Negative Urine Blood Negative Urine Nitrate Negative Urine Bilirubin Negative Urine Urobilinogen Negative Ur Leukocyte Esterase Negative Urine Glucose Negative Salicylates Urine Opiates Screen Acetaminophen Ur Barbiturates Screen Valproic Acid 19.0 L Ur Phencyclidine Scrn Ur Amphetamines Screen U Benzodiazepines Scrn Urine Cocaine Screen U Cannabinoids Screen Serum Alcohol Follow-Up: Appt. for within the next 2 weeks scheduled by SW with MH provider. Clear for Discharge: Adequate Clinical Respons, Acceptable Safety Profile Inpatient DSM-IV Dx: ASSESSMENT: . 1. Bipolar 2 d/o, MRE depresed , severe w/PFs. 2. OCD. 3. Social Phobia. 4. Panic Disorder Discharge Planning - Discharge Planning Discharge Plan: Outpatient Follow Up Outpatient Program: [facility] Recommendations for Continuing Care: Medication Management, Primary Care Followup Medications: Current Medications Acetaminophen (Tylenol Tab*) 650 mg PO Q4H PRN PRN Reason: for pain; or Temp >101 F Last Admin: 08/12/17 09:09 Dose: 650 mg Al Hydrox/Mg Hydrox/Simethicone (Maalox Plus*) 30 ml PO Q4H PRN PRN Reason: INDIGESTION Aripiprazole (Abilify Tab*) 7.5 mg PO DAILY OLIVIA Last Admin: 08/14/17 08:37 Dose: 7.5 mg Buspirone HCl (Buspar Tab *) 15 mg PO BID [facility] Last Admin: 08/14/17 08:37 Dose: 15 mg Clomipramine HCl (Clomipramine (Nf)) 100 mg PO BEDTIME [facility] Last Admin: 08/13/17 20:09 Dose: 100 mg Clonazepam (Klonopin Tab(*)) 1 mg PO BID PRN PRN Reason: AGITATION/ANXIETY/INSOMNIA Last Admin: 08/14/17 08:36 Dose: 1 mg Lisinopril (Prinivil Tab*) 10 mg PO DAILY [facility] Last Admin: 08/14/17 08:37 Dose: 10 mg Multivitamins (Theragran Tab*) 1 tab PO DAILY [facility] Last Admin: 08/14/17 08:37 Dose: 1 tab Nicotine (Nicotine Inhaler*) 10 mg INH Q2H PRN PRN Reason: CRAVING Nicotine Polacrilex (Nicotine Gum*) 2 mg PO Q2H PRN PRN Reason: CRAVING Olanzapine (Zyprexa Tab*) 15 mg PO BEDTIME [facility] Last Admin: 08/13/17 20:09 Dose: 15 mg Discharge Planning: Prescriptions provided for discharge [x] Yes [] No Follow up care details as per social work arrangements. Patient response to discharge plan: [] eager for discharge [x] agreeable with discharge plan [] ambivalent about discharge [] disagrees with discharge today
[2017-08-14 10:21] VITALS: BP 131/89
[2017-08-14] MEDS: Acetaminophen TAB* 325 MG PO PRN (12:16)
== END 2017-08-14 13:05 | disposition home or self-care (01) | DRG 753 ==
LOC: ED 09:25 → BSU 15:36
PROVIDERS: ADMIT Psychiatry & Neurology Psychiatry; ATTEND Psychiatry & Neurology Psychiatry
DX: F31.81 Bipolar II disorder (principal); F33.3 Major depressive disorder, recurrent, severe with psychotic symptoms; R45.851 Suicidal ideations; F42.9 Obsessive-compulsive disorder, unspecified; F40.10 Social phobia, unspecified; F41.0 Panic disorder [episodic paroxysmal anxiety]
CPT/HCPCS: 36415; 80053; 80061; 80164; 80307; 80320; 80329; 81003; 83036; 84443; 85025; 90686; 90853; 99222; 99231; 99238; A9270-GY; G0480

== ENCOUNTER 2019-07-19 12:39 | Emergency (ER) | payer MEDICARE, BC, OTHER ==
[2019-07-19] MEDS ORDERED: Ibuprofen TAB* 600 MG PO ONE (13:49)
--- NOTE | 2019-07-19 14:00 | ED ---
Psychiatric Complaint - HPI Summary HPI Summary: 39-year-old male presents with increasing depression. He states he's been having thoughts of hurting himself. He does not have a specific plan. is seeing a therapist who suggested he come here. Denies any drug or alcohol use. Does smoke marijuana. He states that kids are moving away so has more alone time and is causing him to think more about his situation. He does admit to a slight headache and is requesting ibuprofen. No fevers or other symptoms. - History Of Current Complaint Chief Complaint: EDSuicidal Time Seen by Provider: 07/19/19 13:42 - Allergies/Home Medications Allergies/Adverse Reactions: Allergies Allergy/AdvReac Type Severity Reaction Status Date / Time No Known Allergies Allergy Verified 08/08/17 17:06 Home Medications: Home Medications ARIPiprazole TAB* [Abilify TAB*] 10 mg PO BEDTIME 07/19/19 [History Confirmed 07/19/19] FLUoxetine CAP* [PROzac CAP*] 40 mg PO DAILY 07/19/19 [History Confirmed ] Lisinopril TAB* [Prinivil TAB*] 20 mg PO DAILY 07/19/19 [History Confirmed 07/19] OLANzapine TAB* [Zyprexa 10 MG TAB*] 20 mg PO BEDTIME 07/19/19 [History Confirmed 07/19/19] PMH/Surg Hx/FS Hx/Imm Hx Endocrine/Hematology History: Denies: Hx Anticoagulant Therapy Cardiovascular History: Reports: Hx Hypertension Respiratory History: Denies: Hx Chronic Obstructive Pulmonary Disease (COPD) Sensory History: Reports: Hx Contacts or Glasses Denies: Hx Hearing Aid Opthamlomology History: Reports: Hx Contacts or Glasses Psychiatric History: Reports: Hx Depression, Hx Inpatient Treatment, Hx Community Mental Health Tx, Hx Bipolar Disorder, Other Psychiatric Issues/ Disorders - Hx OCD Denies: Hx Eating Disorder, Hx of Violent Episodes Against Others - Immunization History Immunizations Up to Date: Yes Infectious Disease History: No Infectious Disease History: Denies: Traveled Outside the [place] in Last 30 Days - Family History Known Family History: Positive: Cardiac Disease, Other - OCD - Social History Alcohol Use: Rare Substance Use Type: Reports: None Smoking Status (MU): Never Smoked Tobacco Amount Used/How Often: Pt has not smoked or used any tobacco products in last 30 days Review of Systems Negative: Fever Negative: Chest Pain Negative: Shortness Of Breath Positive: Depressed All Other Systems Reviewed And Are Negative: Yes Physical Exam Triage Information Reviewed: Yes Vital Signs On Initial Exam: Initial Vitals Temp Pulse Resp BP Pulse Ox 98.2 F 99 18 129/89 98 07/19/19 12:54 07/19/19 12:54 07/19/19 12:54 07/19/19 12:54 07/19/19 12:54 Vital Signs Reviewed: Yes Appearance: Positive: Well-Appearing Skin: Positive: Warm, Dry Head/Face: Positive: Normal Head/Face Inspection Eyes: Positive: Normal, Conjunctiva Clear ENT: Positive: Pharynx normal Respiratory/Lung Sounds: Positive: Clear to Auscultation, Breath Sounds Present Cardiovascular: Positive: Normal, RRR Abdomen Description: Positive: Nontender, Soft Bowel Sounds: Positive: Present Musculoskeletal: Positive: Normal Neurological: Positive: Normal Psychiatric: Positive: Depressed Diagnostics - Vital Signs Vital Signs Temp Pulse Resp BP Pulse Ox 07/19/19 12:54 98.2 F 99 18 129/89 98 - Laboratory Result Diagrams: 07/19/19 14:45 07/19/19 14:45 Lab Statement: Any lab studies that have been ordered have been reviewed, and results considered in the medical decision making process. Course/Dx - Course Course Of Treatment: 39-year-old male presents with increasing depression. He states he's been having thoughts of hurting himself. He does not have a specific plan. is seeing a therapist who suggested he come here. Denies any drug or alcohol use. Does smoke marijuana. He states that kids are moving away so has more alone time and is causing him to think more about his situation. He does admit to a slight headache and is requesting ibuprofen. No fevers or other symptoms. On exam has normal physical exam. Is medically clear for mental health. signed out to Joseluis APODACA pending mental health exam. - Differential Dx/Clinical Impression Differential Diagnosis/HQI/PQRI: Positive: Anxiety, Depression, Suicidal Ideation Provider Diagnosis: Depression Discharge ED - Sign-Out/Discharge Documenting (check all that apply): Sign-Out Patient Signing out patient TO: Joseluis Borjas - Discharge Plan Referrals: Haider Richards MD [Primary Care Provider] - - Attestation Statements Provider Attestation: I was available for consult. This patient was seen by the EVELINE. The patient was not presented to, seen by, or examined by me. Louis Roa MD
[2019-07-19 14:52] LABS: ABS Eosinophils 0.3 10^3/ul (0-0.6); ABS Lymphocytes 1.8 10^3/ul (1.0-4.8); ABS Monocytes 0.5 10^3/ul (0-0.8); ABS Neutrophils 6.1 10^3/ul (1.5-7.7); Eosinophil % 3.1 %; Hematocrit 49 % (42-52); Mean Corpuscular HGB Conc 35 g/dL (31-36); Mean Corpuscular Hemoglobin 33 pg (27-31); Mean Corpuscular Volume 94 fL (80-94); Mean Platelet Volume 7.1 fL (7.4-10.4); Nucleated Red Blood Cells % 0.1; Platelet Count 301 10^3/uL (150-450); Red Blood Count 5.23 10^6 /uL (4.18-5.48); Red Cell Distribution Width 13 % (10-15); White Blood Count 8.7 10^3/uL (3.5-10.8)
[2019-07-19 15:03] LABS: Albumin 4.6 g/dL (3.2-5.2); Anion Gap 4 mmol/L (2-11); CO2 Carbon Dioxide 30 mmol/L (22-32); Calcium 9.3 mg/dL (8.6-10.3); Chloride 104 mmol/L (101-111); Potassium 4.6 mmol/L (3.5-5.0); Sodium 138 mmol/L (135-145)
[2019-07-19 15:09] LABS: ALT 25 U/L (7-52); AST 22 U/L (13-39); Albumin/Globulin Ratio 1.6 (1-3); Alkaline Phosphatase 57 U/L (34-104); BUN/Creatinine Ratio 11.3 (8-20); Blood Urea Nitrogen 12 mg/dL (6-24); EGFR African American 93.2 (>60); Globulin 2.8 g/dL (2-4); Glucose 107 mg/dL (70-100); Total Protein 7.4 g/dL (6.4-8.9)
[2019-07-19 15:30] LABS: Acetaminophen < 15 mcg/mL; Alcohol < 10 mg/dL (<10); Salicylate < 2.50 mg/dL (<30)
[2019-07-19 15:36] LABS: TSH (Thyroid Stimulating Horm) 0.75 mcIU/mL (0.34-5.60)
[2019-07-19 16:18] LABS: Urine Appearance Clear; Urine Bilirubin Negative (Negative); Urine Blood Negative (Negative); Urine Color Yellow; Urine Glucose Negative (Negative); Urine Ketones Negative (Negative); Urine Nitrite Negative (Negative); Urine Protein Negative (Negative); Urine Specific Gravity 1.009 (1.010-1.030); Urine Urobilinogen Negative (Negative)
[2019-07-19 16:34] LABS: Urine Benzodiazepine Screen None Detected (None Detect); Urine Opiates Screen None Detected (None Detect)
[2019-07-19 20:17] VITALS: BP 129/95
== END 2019-07-19 20:14 | disposition home or self-care (01) ==
LOC: ED 12:39
DX: F32.9 Major depressive disorder, single episode, unspecified (principal); R45.851 Suicidal ideations; R51 Headache; I10 Essential (primary) hypertension
CPT/HCPCS: 36415; 80053; 80307; 80320; 80329; 81003; 84443; 85025; 99285; A9270-GY; G0480